=== PATIENT | female | born 1960 | race African-American/Black ===

== ENCOUNTER 2023-05-07 14:12 | Outpatient (AMB) | payer MEDICARE, SELFPAY ==
--- NOTE | 2023-05-07 14:16 | HO.NEPHOV_ITS ---
HPI HPI Comments History of Present Illness Details Tanisha was seen in the office in follow up of her CKD and hypertension.She recently had pinched nerve in the neck as left elbow pain and also left big toe pain. Her uric acid level was 6.8. Her blood pressure has b een at goal . She has seen [facility] who wants her to bring her weight down to 285 pounds before she is considered for knee replacement. She avoids nonsteroidal anti-inflammatory medications. Her blood sugar has been normal P she does not have any chest pain, shortness of breath, proximal nocturnal dyspnea, orthopnea, pedal edema or urinary symptoms. Her serum creatinine recently has been 1.4. She has no proteinuria now. She had skipped valsartan for couple of weeks but has restarted taking last week again. [facility] Medical History (Updated 05/07/23 @ 14:55 by Brandt Umaña MD) Essential (primary) hypertension Chronic kidney disease, stage 3a Surgical History (Updated 05/07/23 @ 14:27 by Kathleen Gallagher MA) History of hysterectomy History of detached retina repair Hx of cholecystectomy History of back surgery Family History Mother Diabetes CHF (congestive heart failure) Father Diabetes Social History (Updated 05/07/23 @ 14:28 by Kathleen Gallagher MA) Alcohol intake: never Patient Tobacco Use Status: Never used Tobacco Vital Signs 05/07/23 14:20 Height 5 ft 7.5 in Weight 325 lb BMI 50.1 BP 136/70 Blood Pressure Location Rt brachial Position Sitting Pulse 65 Pulse Source Pulse Oximeter Physical Exam Vital Signs: Last Vital Signs Pulse 65 05/07/23 14:20 BP 136/70 05/07/23 14:20 BMI result Body Mass Index 50.1 Const General: comfortable and no acute distress Orientation/consciousness: patient oriented x3 HEENT Head: Yes normocephalic Mouth: Normal oral and palatal mucosa present Eyes EOM: EOMs intact bilaterally Neck Neck: Yes supple Resp Auscultation: clear to auscultation bilaterally Cardio Jugular venous distension: no JVD Rate: regular rate GI Palpation (GI): Soft to palpation Auscultation: normal bowel sounds General: Yes no CVA tenderness Back/Spine/Pelvis Back: no CVA tenderness Skin General skin exam: no rashes or lesions noted Neuro General: patient oriented x3 and moves all extremities Extrem General: Yes no pedal edema Assessment & Plan Assessment & Plan (1) Essential (primary) hypertension: Code(s): I10 - Essential (primary) hypertension (2) Chronic kidney disease, stage 3a: Code(s): N18.31 - Chronic kidney disease, stage 3a Plan Tanisha has stage 3 chronic kidney disease at baseline . Her renal function remains stable at baseline with a serum creatinine 1.4. She has no proteinuria. Her blood pressure is at goal. She avoids nonsteroidal anti-inflammatory medications. Her blood sugar is normal. She is trying to lose weight. She hydrates herself well. I reinforced her to continue current dose of Ibersartan. I shall consider cutting back the dose if she loses significant weight. I did not make any medication changes today. All her questions and concerns were addressed. Follow-up lab work ordered. Time spent retrieving data, patient encounter and documentation 23 minutes. Follow-up given. Orders: Orders Electrolytes Today I10 - Essential (primary) hypertension, N18.31 - Chronic kidney disease, stage 3a Blood Urea Nitrogen Today I10 - Essential (primary) hypertension, N18.31 - Chronic kidney disease, stage 3a Creatinine Today I10 - Essential (primary) hypertension, N18.31 - Chronic kidney disease, stage 3a Calcium Today I10 - Essential (primary) hypertension, N18.31 - Chronic kidney disease, stage 3a Coding Level of Care Code Est Pt Level 3 (37153) Diagnoses Essential (primary) hypertension I10 Chronic kidney disease, stage 3a N18.31
[2023-05-07 14:20] VITALS: BP 136/70; PULSE 65; BMI 50.1
== END 2023-05-07 15:03 | disposition home or self-care (01) ==
PROVIDERS: Visit Provider Internal Medicine Nephrology
DX: I12.9 Hypertensive chronic kidney disease with stage 1 through stage 4 chronic kidney disease, or unspecified chronic kidney disease (principal); N18.31 Chronic kidney disease, stage 3a
CPT/HCPCS: 99213

== ENCOUNTER → 2023-05-07 14:12 | Outpatient (BNVA) | payer MEDICARE, SELFPAY | PROVIDERS: Visit Provider Internal Medicine Nephrology | DX: I12.9 Hypertensive chronic kidney disease with stage 1 through stage 4 chronic kidney disease, or unspecified chronic kidney disease (principal); N18.31 Chronic kidney disease, stage 3a | CPT/HCPCS: 99212 ==

== ENCOUNTER 2023-08-01 12:19 | Outpatient (REF) | payer MEDICARE, SELFPAY ==
--- NOTE | ~2023-08-01 | XR_ITS ---
EXAMINATION: XR AP, LATERAL AND SUNRISE VIEWS OF BILATERAL KNEES CLINICAL INFORMATION: Pain in unspecified knee. COMPARISON: July 12, 2022 radiographs bilateral knees. TECHNIQUE: AP, lateral and sunrise views of bilateral knees. FINDINGS: RIGHT KNEE: The bones are diffusely demineralized. Genu varus. Severe medial joint space narrowing with [id number], remodeling and hypertrophic change. Moderate degenerative changes in the lateral compartment. Advanced degenerative changes in the patellofemoral compartment. Coarse calcification in the right suprapatellar region present on 07/12/2022 and of indeterminate etiology. LEFT KNEE: The bones are diffusely demineralized. Genu varus. Severe medial joint space narrowing with [id number], remodeling and hypertrophic change. Moderate degenerative changes in the lateral compartment. Advanced degenerative changes in the patellofemoral compartment. XR/XR knee RT 2V IMPRESSION: 1. Severe degenerative changes bilateral knees. 2. Coarse calcification in the right suprapatellar region present on 07/12/2022 and of indeterminate etiology. MRI should be considered for further evaluation based on the clinical assessment.
--- NOTE | ~2023-08-01 | XR_ITS ---
EXAMINATION: XR AP, LATERAL AND SUNRISE VIEWS OF BILATERAL KNEES CLINICAL INFORMATION: Pain in unspecified knee. COMPARISON: July 12, 2022 radiographs bilateral knees. TECHNIQUE: AP, lateral and sunrise views of bilateral knees. FINDINGS: RIGHT KNEE: The bones are diffusely demineralized. Genu varus. Severe medial joint space narrowing with [id number], remodeling and hypertrophic change. Moderate degenerative changes in the lateral compartment. Advanced degenerative changes in the patellofemoral compartment. Coarse calcification in the right suprapatellar region present on 07/12/2022 and of indeterminate etiology. LEFT KNEE: The bones are diffusely demineralized. Genu varus. Severe medial joint space narrowing with [id number], remodeling and hypertrophic change. Moderate degenerative changes in the lateral compartment. Advanced degenerative changes in the patellofemoral compartment. XR/XR knee standing BI IMPRESSION: 1. Severe degenerative changes bilateral knees. 2. Coarse calcification in the right suprapatellar region present on 07/12/2022 and of indeterminate etiology. MRI should be considered for further evaluation based on the clinical assessment.
--- NOTE | ~2023-08-01 | XR_ITS ---
EXAMINATION: XR AP, LATERAL AND SUNRISE VIEWS OF BILATERAL KNEES CLINICAL INFORMATION: Pain in unspecified knee. COMPARISON: July 12, 2022 radiographs bilateral knees. TECHNIQUE: AP, lateral and sunrise views of bilateral knees. FINDINGS: RIGHT KNEE: The bones are diffusely demineralized. Genu varus. Severe medial joint space narrowing with [id number], remodeling and hypertrophic change. Moderate degenerative changes in the lateral compartment. Advanced degenerative changes in the patellofemoral compartment. Coarse calcification in the right suprapatellar region present on 07/12/2022 and of indeterminate etiology. LEFT KNEE: The bones are diffusely demineralized. Genu varus. Severe medial joint space narrowing with [id number], remodeling and hypertrophic change. Moderate degenerative changes in the lateral compartment. Advanced degenerative changes in the patellofemoral compartment. XR/XR knee LT 2V IMPRESSION: 1. Severe degenerative changes bilateral knees. 2. Coarse calcification in the right suprapatellar region present on 07/12/2022 and of indeterminate etiology. MRI should be considered for further evaluation based on the clinical assessment.
== END 2023-08-01 12:20 | disposition home or self-care (01) ==
LOC: HO.HOSX 12:19
PROVIDERS: Visit Provider Orthopaedic Surgery
DX: M17.0 Bilateral primary osteoarthritis of knee (principal)
CPT/HCPCS: 73560; 73565; 99202

== ENCOUNTER 2023-08-01 13:40 | Outpatient (AMB) | payer MEDICARE, SELFPAY ==
--- NOTE | 2023-08-01 14:06 | A.OFFVIS_ITS ---
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 She was previously seen at [facility] where she has had bilateral knee cortisone and Euflexxa Injections. Patient reports that she was discussing TKA with them but needed to loose some weight. She has been struggling with loosing weight, she has been working physical therapy. 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 She complains of pain with daily activity, worse with walking, kneeling, or using stairs. She has been seen at [facility] for this, and has a hx of bilateral steroid & euflexxa injections, with some relief. She is here for a second opinion regarding treatment. She was in discussion concerning surgery, but was told her weight was too high to consider surgery. She says she has been struggling to lose weight due to her knee pain. She has found some relief from PT. [facility] Medical History (Updated 08/02/23 @ 06:43 by Wilmer Hayward MD) Essential (primary) hypertension Chronic kidney disease, stage 3a Surgical History (Updated 05/07/23 @ 14:27 by Kathleen Gallagher MA) History of hysterectomy History of detached retina repair Hx of cholecystectomy History of back surgery Family History Mother Diabetes CHF (congestive heart failure) Father Diabetes Social History (Updated 08/01/23 @ 14:15 by Wendy Cornejo CMA) Alcohol intake: never Patient Tobacco Use Status: Never used Tobacco Current occupational status: unemployed Review of Systems Const All systems reviewed & are unremarkable except as noted in HPI and below Physical Exam Const General: no acute distress, alert and awake Orientation/consciousness: patient oriented x3 HEENT Head: Yes normocephalic and Yes atraumatic Mouth: moist mucous membranes Eyes General: appearance normal, both eyes and all related structures EOM: EOMs intact bilaterally Chest Other: no audible wheezing. Resp Other: No audible wheezing Effort & Inspection: normal respiratory effort and able to speak in complete sentences Cardio Other: Radial pulse palpable with no rythmic abnormalities Jugular venous distension: no JVD Back/Spine/Pelvis Cervical Spine: normal cervical lordosis Skin General skin exam: turgor normal Rashes: no rashes Neuro General: patient oriented x3 Extrem Other: + gait antalgia 0-120 deg bilaterally Flexion limited by soft tissues 1+ varus instability Psych Appearance: grossly normal Mental Status: mental status grossly normal Speech and movement: Normal speech and movement present Affect: normal affect Attitude: cooperative Results Reviewed Results Reviewed: I personally reviewed relevant radiographs. Severe bilateral knee arthropathy with varus pattern and tibial subluxation Assessment & Plan Assessment & Plan (1) Bilateral primary osteoarthritis of knee: Code(s): M17.0 - Bilateral primary osteoarthritis of knee Plan: This is a very pleasant 63 yo F with bilateral knee OA. She is severely limited by her knee arthritis and feels the quality of her life is diminished. I reviewed her xrays with her and explained the rationale behind weight loss prior to surgery and the goals of arthroplasty and the risks, benefits and alternatives. I gave her the name of our moris garza and calculated the amount of weight loss that would be required for her to have a BMI < 40. She would benefit from both arthroplasty and weight loss. She can contact me in the future if she needs anything. Plan Prepared for Wilmer Hayward MD by Aditya Alonso, medical center director, on 08/01/23 at 2:15 PM, EST. Orders: Orders XR knee RT 2V 08/01/23 M25.569 - Pain in unspecified knee XR knee standing BI 08/01/23 M25.569 - Pain in unspecified knee XR knee LT 2V 08/01/23 M25.569 - Pain in unspecified knee Coding Level of Care Code New Pt Level 4 (34063) Diagnoses Bilateral primary osteoarthritis of knee M17.0
== END 2023-08-01 15:07 | disposition home or self-care (01) ==
PROVIDERS: Visit Provider Orthopaedic Surgery
DX: M17.0 Bilateral primary osteoarthritis of knee (principal)
CPT/HCPCS: 99203

== ENCOUNTER 2023-09-04 10:32 | Outpatient (REF) | payer MEDICARE, SELFPAY ==
[2023-09-04 18:51] LABS: Anion Gap 13 (12-20); Blood Urea Nitrogen 25 mg/dL (9-16); Carbon Dioxide 25 mmol/L (22-29); Chloride 110 mmol/L (96-108); Estimated Glomerular Filt Rate 43; Potassium 3.8 mmol/L (3.3-5.1); Sodium 144 mmol/L (135-145)
== END 2023-09-04 10:33 | disposition home or self-care (01) ==
LOC: HO.HKASLDS 10:32
PROVIDERS: Visit Provider Internal Medicine Nephrology
DX: I10 Essential (primary) hypertension (principal); N18.31 Chronic kidney disease, stage 3a
CPT/HCPCS: 36415; 80051; 82310; 82565; 84520

== ENCOUNTER 2023-09-05 15:14 | Outpatient (AMB) | payer MEDICARE, SELFPAY ==
--- NOTE | 2023-09-05 15:29 | HO.NEPHOV_ITS ---
HPI HPI Comments History of Present Illness Details I had the delight of seeing Tanisha in follow-up of her hypertension as well as CKD. She has been having back pain. She has been closely followed by her primary care physician. She denies taking any excessive nonsteroidal anti- inflammatories for her back pain. She has no hematuria or flank pain. She denies fever, chills or rigors. Her blood pressure has been at goal. Her renal functions have been stable. She does not have any worsening pedal edema, chest pain, shortness of breath, paroxysmal nocturnal dyspnea, orthopnea. She is compliant with her CPAP. [facility] Medical History (Updated 08/02/23 @ 06:43 by Wilmer Hayward MD) Essential (primary) hypertension Chronic kidney disease, stage 3a Surgical History History of hysterectomy History of detached retina repair Hx of cholecystectomy History of back surgery Family History Mother Diabetes CHF (congestive heart failure) Father Diabetes Social History Alcohol intake: never Patient Tobacco Use Status: Never used Tobacco Current occupational status: unemployed Vital Signs 09/05/23 15:32 Height 5 ft 7.5 in Weight 332 lb BMI 51.2 BP 112/74 Blood Pressure Location Lt radial Position Sitting Pulse 60 Pulse Source Pulse Oximeter Pulse Oximetry (%) 97 Oxygen Delivery Method Room Air Physical Exam Vital Signs: Last Vital Signs Pulse 60 09/05/23 15:32 BP 112/74 09/05/23 15:32 Pulse Ox 97 09/05/23 15:32 Oxygen Delivery Method Room Air 09/05/23 15:32 BMI result Body Mass Index 51.2 Const General: comfortable and no acute distress Orientation/consciousness: patient oriented x3 HEENT Head: Yes normocephalic Mouth: Normal oral and palatal mucosa present Eyes EOM: EOMs intact bilaterally Neck Neck: Yes supple Resp Auscultation: clear to auscultation bilaterally Cardio Jugular venous distension: no JVD Rate: regular rate GI Palpation (GI): Soft to palpation Auscultation: normal bowel sounds Skin General skin exam: no rashes or lesions noted Neuro General: patient oriented x3 and moves all extremities Assessment & Plan Assessment & Plan (1) Essential (primary) hypertension: Code(s): I10 - Essential (primary) hypertension (2) Chronic kidney disease, stage 3a: Code(s): N18.31 - Chronic kidney disease, stage 3a Plan Tanisha has longstanding hypertension mild CKD. Her renal functions are close to baseline. Her blood pressure has been at goal. She is on angiotensin receptor klever. Her volume status is optimal. She is tolerating statins. She does not have any orthostatic symptoms. She avoids nonsteroidal anti-inflammatories. She maintains good hydration. I did not make any medication changes today. All the lab data were discussed. All questions were answered. Follow-up appointment given. Orders: Orders Creatinine 09/05/23 I10 - Essential (primary) hypertension, N18.31 - Chronic kidney disease, stage 3a Blood Urea Nitrogen 09/05/23 I10 - Essential (primary) hypertension, N18.31 - Chronic kidney disease, stage 3a Protein Creatinine Ratio, Ur 09/05/23 I10 - Essential (primary) hypertension, N18.31 - Chronic kidney disease, stage 3a Electrolytes 09/05/23 I10 - Essential (primary) hypertension, N18.31 - Chronic kidney disease, stage 3a Coding Level of Care Code Est Pt Level 4 (46531) Diagnoses Essential (primary) hypertension I10 Chronic kidney disease, stage 3a N18.31 Results Reviewed Nephrology Results: Sodium 144 mmol/L (135-145) 09/04/23 Potassium 3.8 mmol/L (3.3-5.1) 09/04/23 Chloride 110 mmol/L (96-108) H 09/04/23 Carbon Dioxide 25 mmol/L (22-29) 09/04/23 BUN 25 mg/dL (9-16) H 09/04/23 Creatinine 1.25 mg/dL (0.5-1.4) 09/04/23 Calcium 9.0 mg/dL (8.4-10.2) 09/04/23
[2023-09-05 15:32] VITALS: BP 112/74; PULSE 60; O2SAT 97; BMI 51.2
== END 2023-09-05 16:09 | disposition home or self-care (01) ==
LOC: HO.HKAS 15:14
PROVIDERS: PCP Internal Medicine; Visit Provider Internal Medicine Nephrology
DX: I10 Essential (primary) hypertension (principal); N18.31 Chronic kidney disease, stage 3a
CPT/HCPCS: 99214

== ENCOUNTER → 2023-09-05 15:14 | Outpatient (BNVA) | payer MEDICARE, SELFPAY | PROVIDERS: PCP Internal Medicine; Visit Provider Internal Medicine Nephrology | DX: I12.9 Hypertensive chronic kidney disease with stage 1 through stage 4 chronic kidney disease, or unspecified chronic kidney disease (principal); N18.31 Chronic kidney disease, stage 3a | CPT/HCPCS: 99212 ==

== ENCOUNTER 2023-12-03 15:26 | Outpatient (REF) | payer MEDICARE, SELFPAY ==
[2023-12-03 18:32] LABS: Anion Gap 12 (12-20); Blood Urea Nitrogen 25 mg/dL (9-16); Calcium 8.9 mg/dL (8.4-10.2); Carbon Dioxide 24 mmol/L (22-29); Chloride 111 mmol/L (96-108); Estimated Glomerular Filt Rate 38; Potassium 3.5 mmol/L (3.3-5.1); Sodium 143 mmol/L (135-145)
[2023-12-03 18:42] LABS: Creatinine Urine 239.39 mg/dL; Protein/Creatinine Ratio, Ur 0.13 (<0.2); Total Protein Urine Random 31 mg/dL (<12)
== END 2023-12-03 15:27 | disposition home or self-care (01) ==
LOC: HO.HKASLDS 15:26
PROVIDERS: Visit Provider Internal Medicine Nephrology
DX: I10 Essential (primary) hypertension (principal); N18.31 Chronic kidney disease, stage 3a
CPT/HCPCS: 36415; 80051; 82310; 82565; 82570; 84156; 84520

== ENCOUNTER 2023-12-05 15:29 | Outpatient (AMB) | payer MEDICARE, SELFPAY ==
[2023-12-05 15:34] VITALS: BP 122/80; PULSE 72; O2SAT 97; BMI 52.2
--- NOTE | 2023-12-05 15:34 | HO.NEPHOV ---
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 She has been closely followed by her primary care physician. She denies taking any excessive nonsteroidal anti-inflammatories for her back pain. She has no hematuria or flank pain. She denies fever, chills or rigors. Her blood pressure has been at goal. Her renal functions have been stable. She does not have any worsening pedal edema, chest pain, shortness of breath, paroxysmal nocturnal dyspnea, orthopnea. She is compliant with her CPAP. [facility] Medical History (Updated 08/02/23 @ 06:43 by Wilmer Hayward MD) Essential (primary) hypertension Chronic kidney disease, stage 3a Surgical History History of hysterectomy History of detached retina repair Hx of cholecystectomy History of back surgery Family History Mother Diabetes CHF (congestive heart failure) Father Diabetes Social History Alcohol intake: never Patient Tobacco Use Status: Never used Tobacco Current occupational status: unemployed Physical Exam Vital Signs: Last Vital Signs Pulse 72 12/05/23 15:34 BP 122/80 12/05/23 15:34 Pulse Ox 97 12/05/23 15:34 Oxygen Delivery Method Room Air 12/05/23 15:34 BMI result Body Mass Index 52.2 Const General: comfortable and no acute distress Orientation/consciousness: patient oriented x3 HEENT Head: Yes normocephalic Mouth: Normal oral and palatal mucosa present Eyes EOM: EOMs intact bilaterally Neck Neck: Yes supple Resp Auscultation: clear to auscultation bilaterally Cardio Jugular venous distension: no JVD Rate: regular rate GI Palpation (GI): Soft to palpation Auscultation: normal bowel sounds General: Yes no CVA tenderness Back/Spine/Pelvis Back: no CVA tenderness Skin General skin exam: no rashes or lesions noted Neuro General: patient oriented x3 and moves all extremities Extrem General: Yes no pedal edema Results Reviewed Nephrology Results: Sodium 143 mmol/L (135-145) 12/03/23 Potassium 3.5 mmol/L (3.3-5.1) 12/03/23 Chloride 111 mmol/L (96-108) H 12/03/23 Carbon Dioxide 24 mmol/L (22-29) 12/03/23 BUN 25 mg/dL (9-16) H 12/03/23 Creatinine 1.39 mg/dL (0.5-1.4) 12/03/23 Calcium 8.9 mg/dL (8.4-10.2) 12/03/23 Urine Creatinine 239.39 mg/dL 12/03/23 Protein/Creatinin Ratio 0.13 (<0.2) 12/03/23 Assessment & Plan Assessment & Plan (1) Essential (primary) hypertension: Code(s): I10 - Essential (primary) hypertension Category: Medical (2) Chronic kidney disease, stage 3a: Code(s): N18.31 - Chronic kidney disease, stage 3a Category: Medical Plan Tanisha has longstanding hypertension mild CKD. Her renal functions are close to baseline. Her blood pressure has been at goal. She is on angiotensin receptor klever. Her volume status is optimal. She is tolerating statins. She does not have any orthostatic symptoms. She avoids nonsteroidal anti-inflammatories. She maintains good hydration. I did not make any medication changes today. All the lab data were discussed. All questions were answered. Follow-up appointment given. Orders: Orders Blood Urea Nitrogen Today I10 - Essential (primary) hypertension, N18.31 - Chronic kidney disease, stage 3a Electrolytes Today I10 - Essential (primary) hypertension, N18.31 - Chronic kidney disease, stage 3a Creatinine Today I10 - Essential (primary) hypertension, N18.31 - Chronic kidney disease, stage 3a Coding Level of Care Code Est Pt Level 4 (77384) Diagnoses Essential (primary) hypertension I10 Chronic kidney disease, stage 3a N18.31
== END 2023-12-05 15:59 | disposition home or self-care (01) ==
PROVIDERS: PCP Internal Medicine; Visit Provider Internal Medicine Nephrology
DX: I10 Essential (primary) hypertension (principal); N18.31 Chronic kidney disease, stage 3a
CPT/HCPCS: 99214

== ENCOUNTER → 2023-12-05 15:29 | Outpatient (BNVA) | payer MEDICARE, SELFPAY | PROVIDERS: PCP Internal Medicine; Visit Provider Internal Medicine Nephrology | DX: I12.9 Hypertensive chronic kidney disease with stage 1 through stage 4 chronic kidney disease, or unspecified chronic kidney disease (principal); N18.31 Chronic kidney disease, stage 3a | CPT/HCPCS: 99212 ==

== ENCOUNTER 2024-05-28 13:42 | Outpatient (AMB) | payer MEDICARE, SELFPAY ==
--- OUTSIDE RECORDS SUMMARY | 2024-05-28 13:44 | XMS_ITS | Continuity of Care Document ---
Author Organization [facility] Address [address] [place] [address]- Support Name Relationship Address Phone ZELAYA, TD Personal Relationship Unknown Theresa vailable ZELAYA, TD Personal Relationship Unknown Theresa vailable ZELAYA, TD Personal Relationship Unknown Theresa vailable ZELAYA, TD Personal Relationship Unknown Theresa vailable ZELAYA, TD Personal Relationship Unknown Theresa vailable ZELAYA, TD Personal Relationship Unknown Theresa vailable ZELAYA, TD Personal Relationship Unknown Theresa vailable ZELAYA, TD Personal Relationship Unknown Theresa vailable ZELAYA, TD Personal Relationship Unknown Theresa vailable ZELAYA, TD Personal Relationship Unknown Theresa vailable ZELAYA, TD Personal Relationship Unknown Theresa vailable ZELAYA, TD Personal Relationship Unknown Theresa vailable ZELAYA, TD Personal Relationship Unknown Theresa vailable ZELAYA, TD Personal Relationship Unknown Theresa vailable ZELAYA, TD Personal Relationship Unknown Theresa vailable ZELAYA, TD Personal Relationship Unknown Theresa vailable ZELAYA, TD Personal Relationship Unknown Theresa vailable ZELAYA, TD Personal Relationship Unknown Theresa vailable ZELAYA, TD Personal Relationship Unknown Theresa vailable ZELAYA, TD Personal Relationship Unknown Theresa vailable ZELAYA, TD Personal Relationship Unknown Theresa vailable ZELAYA, TD Personal Relationship Unknown Theresa vailable ZELAYA, TD Personal Relationship Unknown Theresa vailable ZELAYA, TD Personal Relationship Unknown Theresa vailable ZELAYA, TD Personal Relationship Unknown Theresa vailable ZELAYA, TD Personal Relationship Unknown Theresa vailable ZELAYA, TD Personal Relationship Unknown Theresa vailable ZELAYA, TD Personal Relationship Unknown Theresa vailable ZEALYA, TD Personal Relationship Unknown Theresa vailable ZELAYA, TIM Personal Relationship Unknown Unavai lable ZELAYA, TD Personal Relationship Unknown Theresa vailable ZELAYA, TD Personal Relationship Unknown Theresa vailable ZELAYA, TD Personal Relationship Unknown Theresa vailable ZELAYA, TD Personal Relationship Unknown Theresa vailable ZELAYA, TD Personal Relationship Unknown Theresa vailable ZELAYA, TD Personal Relationship Unknown Theresa vailable ZELAYA, TD Personal Relationship Unknown Theresa vailable ZELAYA, TD Personal Relationship Unknown Theresa vailable ZELAYA, TIM Personal Relationship Unknown Unavai lable ZELAYA, TD Personal Relationship Unknown Theresa vailable ZELAYA, TD Personal Relationship Unknown Theresa vailable ZELAYA, ALYCE Personal Relationship Unknown Unav ailable ZELAYA, TD Personal Relationship Unknown Theresa vailable ZELAYA, TD Personal Relationship Unknown Theresa vailable ZELAYA, TD Personal Relationship Unknown Theresa vailable ZELAYA, TD Personal Relationship Unknown Theresa vailable ZELAYA, TD Personal Relationship Unknown Theresa vailable ZELAYA, TD Personal Relationship Unknown Theresa vailable ZELAYA, ALYCE Personal Relationship Unknown Unav ailable ZELAYA, TD Personal Relationship Unknown Theresa vailable ZELAYA, TD spouse Unknown Unavailable ZELAYA, TD Personal Relationship Unknown Theresa vailable ZELAYA, MARK child Unknown Unavailable ZELAYA, TD Personal Relationship Unknown Theresa vailable ZELAYA, TD Personal Relationship Unknown Theresa vailable ZELAYA, TD Personal Relationship Unknown Theresa vailable ZELAYA, TD Personal Relationship Unknown Theresa vailable ZELAYA, TD Personal Relationship Unknown Theresa vailable ZELAYA, TD Personal Relationship Unknown Theresa vailable ZELAYA, TD Personal Relationship Unknown Theresa vailable ZELAYA, TD Personal Relationship Unknown Theresa vailable ZELAYA, TD Personal Relationship Unknown Theresa vailable ZELAYA, TD Personal Relationship Unknown Theresa vailable ZELAYA, TD Personal Relationship Unknown Theresa vailable ZELAYA, TD Personal Relationship Unknown Theresa vailable ZELAYA, TD Personal Relationship Unknown Theresa vailable ZELAYA, TD Personal Relationship Unknown Theresa vailable ZELAYA, TD Personal Relationship Unknown Theresa vailable ZELAYA, TD Personal Relationship Unknown Theresa vailable ZELAYA, TD Personal Relationship Unknown Theresa vailable ZELAYA, TD Personal Relationship Unknown Theresa vailable ZELAYA, TD Personal Relationship Unknown Theresa vailable ZELAYA, TD Personal Relationship Unknown Theresa vailable ZELAYA, TD Personal Relationship Unknown Theresa vailable ZELAYA, TD Personal Relationship Unknown Theresa vailable ZELAYA, TD Personal Relationship Unknown Theresa vailable ZELAYA, TD Personal Relationship Unknown Theresa vailable ZELAYA, TD Personal Relationship Unknown Theresa vailable ZELAYA, TD Personal Relationship Unknown Theresa vailable ZELAYA, TD Personal Relationship Unknown Theresa vailable ZELAYA, ALYCE Personal Relationship Unknown Unav ailable ZELAYA, TD Personal Relationship Unknown Theresa vailable MAYORGA, GAYLA sibling Unknown Unavailable ZELAYA, TD Personal Relationship Unknown Theresa vailable ZELAYA, TD Personal Relationship Unknown Theresa vailable ZELAYA, ALYCE Personal Relationship Unknown Unav ailable ZELAYA, TD Personal Relationship Unknown Theresa vailable ZELAYA, TD Personal Relationship Unknown Theresa vailable ZELAYA, TD Personal Relationship Unknown Theresa vailable ZELAYA, TD Personal Relationship Unknown Theresa vailable ZELAYA, TIM spouse Unknown Unavailable ZELAYA, TD Personal Relationship Unknown Theresa vailable ZELAYA, TD Personal Relationship Unknown Theresa vailable ZELAYA, ALYCE Personal Relationship Unknown Unav ailable ZELAYA, ALYCE Personal Relationship Unknown Unav ailable ZELAYA, TD Personal Relationship Unknown Theresa vailable ZELAYA, TD Personal Relationship Unknown Theresa vailable ZELAYA, TD Personal Relationship Unknown Theresa vailable ZELAYA, TD Personal Relationship Unknown Theresa vailable ZELAYA, ALYCE Personal Relationship Unknown Unav ailable ZELAYA, TD Personal Relationship Unknown Theresa vailable ZELAYA, ALYCE Personal Relationship Unknown Unav ailable ZELAYA, TD Personal Relationship Unknown Theresa vailable ZELAYA, TD Personal Relationship Unknown Theresa vailable ZELAYA, TD L Personal Relationship Unknown U navailable ZELAYA, TD Personal Relationship Unknown Theresa vailable ZELAYA, TD Personal Relationship Unknown Theresa vailable ZELAYA, TD Personal Relationship Unknown Theresa vailable ZELAYA, TIM Personal Relationship Unknown Unavai lable ZELAYA, TD Personal Relationship Unknown Theresa vailable ZELAYA, TD Personal Relationship Unknown Theresa vailable ZELAYA, TD Personal Relationship Unknown Theresa vailable ZELAYA, TD Personal Relationship Unknown Theresa vailable Care Team Providers Care Ampoule Filler Name Role Phone Ramos CORTEZ, Jorge W Primary Care Physician Encounter [facility] NBR [id number] Date(s): 04/07/24 - 05/07/24 [facility] Gastroenterology [address] [address] Attending Physician: Supriya Pierre Admitting Physician: Supriya Pierre Referring Physician: Supriya Pierre Encounter Type: Triage Allergies, Adverse Reactions, Alerts Substance Criticality Severity Reaction Reaction Severity Status amoxicillin itching Active lisinopril cough Active penicillins Active Motrin Active Bactrim yeast infection Acti ve Kzpjwixr-JKM-4 rash Activ e Immunizations Given and Recorded Vaccine Date Status Refusal Reason influenza virus vaccine, inactivated 04/22/24 Give n influenza virus vaccine, inactivated 05/27/23 Give n influenza virus vaccine, inactivated 03/28/22 Give n influenza virus vaccine, inactivated 06/22/21 Give n influenza virus vaccine, inactivated 1 04/20/20 Gi hiram influenza virus vaccine, inactivated 03/17/19 Give n influenza virus vaccine, inactivated 04/08/18 Give n influenza virus vaccine, inactivated 2 02/28/17 Gi hiram influenza virus vaccine, inactivated 04/10/16 Give n influenza virus vaccine, inactivated 05/19/15 Give n influenza virus vaccine, inactivated 02/16/13 [facility]ed[facility] rded SARS-CoV-2 (COVID-19) mRNA-1270 vaccine 12/26/21 R ecorded SARS-CoV-2 (COVID-19) mRNA-1273 vaccine 09/22/20 R ecorded SARS-CoV-2 (COVID-19) mRNA-1273 vaccine 08/25/20 R ecorded tetanus/diphtheria/pertussis, acel(Tdap) 3 07/25/17 Given Fluarix (oldterm) 4 04/18/12 Given pneumococcal 23-valent vaccine 11/12/11 Given Fluzone (oldterm) 03/29/11 Given FluLaval (oldterm) 03/23/10 Given Influenza Virus Vaccine (oldterm) 5 03/18/08 Given Tet/Diphth/Acel, Pertussis (oldterm) 6 03/06/07 Gi hiram 1Result Comment: [facility] [id number] 2Admin Note: [facility] [id number] 3Result Comment: [07/25/2017] [id number] 4Admin Note: vis date 12/10/2011 5Admin Note: SANOFI PASTEUR 6Admin Note: SANOFI PASTEUR Problem List Condition Confirmation Course Effective Dates Status H ealth Status Informant Acid reflux Confirmed Active Chronic allergic rhinitis Confirmed Active Anemia Confirmed Active Anxiety disorder Confirmed Active Asthma Confirmed Active Osteoarthritis of both knees Confirmed Active Heart failure, diastolic, chronic Confirmed Active Chronic kidney disease, stage 3b 1 Confirmed Active Chronic low back pain Confirmed Active Diastolic dysfunction without heart failure Confirmed Active Dizziness Confirmed Active Controlled substance agreement signed Confirmed Active Dyslipidemia Confirmed Active Easy bruising Confirmed Active Leg edema Confirmed Active Chronic fatigue Confirmed Active Fibromyalgia 2 Confirmed Active History of acute cholecystitis (cholelithiasis) S/P Laparoscopic cholecystectomy with intraoperative cholangiogram (06/13/2022) Confirmed 06/12/22 Active History of pulmonary embolism 3 Confirmed Active Headache disorder Confirmed Active Hernia of anterior abdominal wall without obstruction AND without gangrene Confirmed Active Hypertension 4 Confirmed Active Lumbar radiculopathy S/P Lumbar microdiskectomy decompression, L5-S1, left (05/07/2022) Confirmed Active Memory impairment Confirmed Active Morbid obesity Confirmed Active Preoperative examination Confirmed Active Peripheral neuropathy Confirmed Active Polyarthritis Confirmed Active SI joint arthritis Confirmed Active Sebaceous cysts of bilateral calves Confirmed Active Severe obesity Confirmed Active Obstructive sleep apnea, moderate REM dominant Confirmed Active Thyroid nodule, 2020: 3.1 cm lower isthmus, TI-RADS 4, 1.7 cm left mid gland, TI-RADS 2.S/P FNA on 02/10/2021 of isthmus nodule-nondiagnostic, predominantly cystic fluid. 5, 6 Confirmed Active Low TSH level Confirmed 04/22/24 Active Vitamin B12 deficiency Confirmed Active 1Per chart review meeting GFR criteria 2Off gabapentin 600 mg twice a day, getting pregabalin 75 mg twice a day through [facility]. Also on duloxetine 90 mg daily. [id number] 4Renal art. Duplex negative for B/L MIGUELANGEL. US:IMPRESSION: 3.1 cm lower isthmus nodule without aggressive features, but with possible punctate echogenic foci suggesting TI-RADS Category 4 characterization. Therefore, consideration for FNA recommended. 1.7 left mid gland nodule, TI-RADS Category 2. : A well circumscribed heterogeneous nodule with multiple cystic areas is noted in the area of left thyroid region. This nodule appears to be isoechoic to hyperechoic and demonstrates multiple colloid artifacts. This nodule has been stable in size. Importantly, it has been biopsy proven negative for malignancy in the past. Patient does not endorse any compressive symptoms and there is no evidence of tracheal compression and ultrasound today as well. Social History Social History Type Response Smoking Status Never (less than 100 in lifetime) entered on: 01/23/23 Sex Sex Representation Female (finding) Patient Care team information Care Team Personnel Name: Eunice Rico RN Position: [facility] RN Member Role: Primary Care Nurse Name: Annamaria Muñoz RN Position: [facility] RN Member Role: Primary Care Nurse Name: Zonia Knapp RN Position: [facility] RN Member Role: Primary Care Nurse Name: Lucina Hernandes NP Position: [facility] Associate Professional Member Role: Primary Care Nurse Name: Alaina Singh RN Position: S RN Member Role: Primary Care Nurse Name: Brandt Umaña MD Position: [facility] Renal MD Member Role: Lifetime Consulting Physician Address: [address] [place] [address] [address] [place] [address]- Telecom: Name: Ca Garcia RN Position: S RN Member Role: Primary Care Nurse Name: Janell Wan RN Position: [facility] RN Member Role: Primary Care Nurse Name: Silvia Ball RN Position: [facility] RN Member Role: Primary Care Nurse Name: Edith Serna RN Position: [facility] RN Member Role: Primary Care Nurse Name: Vinicius Fermin RN Position: [facility] RN Member Role: Primary Care Nurse Name: Kathleen Gallagher Position: [facility] AMB Nurse Member Role: Lifetime Consulting Physician Name: Pilar Murillo RN Position: [facility] SN RN Member Role: Primary Care Nurse Name: Cecilia August RN Position: [facility] RN Member Role: Primary Care Nurse Name: Kiara Oliveira RN Position: [facility] BEST Office Staff Member Role: Primary Care Nurse Name: Minerva Milner RN Position: [facility] OB RN Member Role: Primary Care Nurse Name: Jorge Beasley MD Position: [facility] Physician - Primary Care Member Role: PCP Address: [address] [place] [address] [place] Telecom: Name: Makayla Flores LPN Position: [facility] RN Member Role: Primary Care Nurse Name: Crystal Eddy RN Position: [facility] Hospital Bliss Press Operator Member Role: Primary Care Nurse Care Team Related Persons Name: TIM ZELAYA Name: MARK ZELAYA Insurance Providers Guarantor name: ALYCE ZELAYA Health Plan Information #: 1 Payer: [facility] CARE ALLIANCE/ONE CARE Member Number: NA Policy Number: NA Group Number: NA
--- OUTSIDE RECORDS SUMMARY | 2024-05-28 13:44 | XMS_ITS | Continuity of Care Document ---
Author Organization [facility] Address [address] [address]- Support Name Relationship Address Phone ZELAYA, TD Personal Relationship Unknown Theresa vailable ZELAYA, TD Personal Relationship Unknown Theresa vailable ZELAYA, DT Personal Relationship Unknown Theresa vailable ZELAYA, TD [...] TD Personal Relationship Unknown Theresa vailable ZELAYA, DT Personal Relationship Unknown Theresa vailable ZELAYA, TD [...] Unknown Theresa vailable Care Team Providers Care Computer Discovery Teacher Name Role Phone Ramos CORTEZ, Jorge W Primary Care Physician Encounter [facility] Date(s): 03/31/24 - 04/30/24 [facility] Pulmonary Medicine [address] [facility] [address] [place] [id number] Encounter Type: Triage Allergies, Adverse Reactions, Alerts Substance Criticality Severity Reaction Reaction Severity Status amoxicillin itching Active lisinopril cough Active penicillins Active Motrin Active Bactrim yeast infection Acti ve Qdrmbiyn-RDA-5 rash Activ e Immunizations Given and Recorded [...] vaccine, inactivated 02/16/13 [facility] rded SARS-CoV-2 (COVID-19) mRNA-1273 vaccine 12/26/21 R ecorded SARS-CoV-2 (COVID-19) mRNA-1273 vaccine 09/22/20 R ecorded SARS-CoV-2 (COVID-19) mRNA-1273 vaccine 08/25/20 R ecorded tetanus/diphtheria/pertussis, acel(Tdap) 3 07/25/17 Given Fluarix (oldterm) 4 04/18/12 Given pneumococcal 23-valent vaccine 11/12/11 Given Fluzone (oldterm) 03/29/11 Given FluLaval (oldterm) 03/23/10 Given Influenza Virus Vaccine (oldterm) 5 03/18/08 Given Tet/Diphth/Acel, Pertussis (oldterm) 6 03/06/07 Gi hiarm 1Result Comment: [facility] [id number] 2Admin Note: [facility] [id number] 3Result Comment: [07/25/2017] [id number] 4Admin Note: vis date 12/10/2011 5Admin Note: [...] [facility]. Also on duloxetine 90 mg daily. [id number] 4Renal art. Duplex negative for B/L MIGUELANGEL. [...] Team Personnel Name: Eunice Rico RN Position: [facility] RN Member Role: Primary Care Nurse Name: Annamaria Muñoz RN Position: [facility] RN Member Role: Primary Care Nurse Name: Zonia Knapp RN Position: [facility] RN Member Role: Primary Care Nurse Name: Lucina Hernandes NP Position: [facility] Associate Professional Member Role: Primary Care Nurse Name: Alaina Singh RN Position: [facility] RN Member Role: Primary Care Nurse Name: Brandt Umaña MD Position: [facility] Renal MD Member Role: Lifetime Consulting Physician Address: [address] [place] [address] [address] [facility] [place] [address]- Telecom: Name: Ca Garcai RN Position: S RN Member Role: Primary Care Nurse Name: Janell Wan RN Position: S RN Member Role: Primary Care Nurse Name: Silvia Ball RN Position: [facility] RN Member Role: Primary Care Nurse Name: Edith Serna RN Position: [facility] RN Member Role: Primary Care Nurse Name: Vinicius Fermin RN Position: [facility] RN Member Role: Primary Care Nurse Name: Kathleen Gallagher Position: [facility] AMB Nurse Member Role: Lifetime Consulting Physician Name: Pilar Murillo RN Position: [facility] AMB Nurse Member Role: Primary Care Nurse Name: Cecilia August RN Position: [facility] RN Member Role: Primary Care Nurse Name: Kiara Oliveira RN Position: [facility] BEST Office Staff Member Role: Primary Care Nurse Name: Minerva Milenr RN Position: [facility] OB RN Member Role: Primary Care Nurse Name: Jorge Beasley MD Position: [facility] Physician - Primary Care Member Role: PCP Address: [address] [place] [id number] Telecom: Name: Makayla Flores LPN Position: [facility] RN Member Role: Primary Care Nurse Name: Crystal Eddy RN Position: [facility] Power Tool Repair Technician Member Role: Primary Care Nurse Care Team Related Persons Name: TIM ZELAYA Name: MARK ZELAYA Insurance Providers Guarantor name: ALYCE ZELAYA Health Plan Information #: 1 Payer: [facility] CARE ALLIANCE/ONE CARE Member Number: NA Policy Number: NA Group Number: NA
--- OUTSIDE RECORDS SUMMARY | 2024-05-28 13:45 | XMS_ITS | Continuity of Care Document ---
Author Organization [facility] Address [address] [place] [address]- Support Name Relationship Address Phone ZELAYA, TD [...] Theresa vailable ZELAYA, TD Personal Relationship Unknown Tehresa vailable ZELAYA, TD Personal Relationship Unknown Theresa [...] ZELAYA, TD Personal Relationship Unknown Theresa vailable ZLEAYA, TD Personal Relationship Unknown Theresa vailable ZELAYA, [...] TD Personal Relationship Unknown Theresa vailable ZEALYA, TIM spouse Unknown Unavailable ZELAYA, TD Personal Relationship Unknown Theresa vailable ZELAYA, TD Personal Relationship Unknown Theresa vailable ZELAYA, ALYCE Personal Relationship Unknown Unav ailable ZELAYA, ALYCE Personal Relationship Unknown Unav ailable ZELAYA, TD Personal Relationship Unknown Theresa vailable ZELAYA, TD Personal Relationship Unknown Thersea vailable ZELAYA, TD Personal Relationship Unknown Theresa [...] Unknown Theresa vailable Care Team Providers Care Bridge Leverman Name Role Phone Ramos CORTEZ, Jorge W Primary Care Physician [phone] Encounter [facility] Date(s): 04/30/24 - 05/01/[address] [address]- Encounter Diagnosis Chest pain(Final) - 04/30/24 Discharge Disposition: A-D/C Home Attending Physician: Benny Rebolledo MD Admitting Physician: Benny Rebolledo MD Referring Physician: Not on Staff, Referring MD Encounter Type: Disch ES Allergies, Adverse Reactions, Alerts Substance Criticality Severity Reaction Reaction Severity Status amoxicillin itching Active lisinopril cough Active penicillins Active Motrin Active Bactrim yeast infection Acti ve [id number] rash Activ e Immunizations Given and Recorded [...] (oldterm) 6 03/06/07 Gi hiram 1Result Comment: [facility] [id number] 2Admin Note: [facility] [id number] 3Result Comment: [07/25/2017] [id number] 4Admin Note: vis date 12/10/2011 5Admin Note: [...] NEOS. Also on duloxetine 90 mg daily. [address] 4Renal art. Duplex negative for B/L MIGUELANGEL. US:IMPRESSION: 3.1 cm lower isthmus nodule without aggressive features, but with possible punctate echogenic foci suggesting TI-RADS Category 4 characterization. Therefore, consideration for FNA recommended. 1.7 left mid gland nodule, TI-RADS Category 2. 6002/06/2016: A well circumscribed heterogeneous nodule with multiple [...] tracheal compression and ultrasound today as well. Results Radiology Reports * Exam Date Time Procedure Performing Provider Status 04/30/24 6:[address] Angio Chest Karo Moore; Auth (Verified) Notes: (CT Angio Chest) Reason For Exam: PE suspected, Intermediate prob, positive D-dimer,;Other: RESULT: CT Angio Chest EXAMINATION: CT Angio Chest INDICATION: Hx of Present Illness: sent from [place] o pna v PE. Saw PCP 1 week ago for annual checkup, labs showed elevated ddimer. US done, neg for DVT. Started having CP SOB 4-5 days ago. Hx of PE, not currently on blood thinner since 2016. L calf pain. Trip to [place] 1 month ago, flew; Reason: Other:;PE suspected, Intermediate prob, positive D-dimer,; Clinical Question(s): Pulmonary Embolism TECHNIQUE: Spiral CTA of the chest was performed after rapid IV contrast administration without cardiac gating, triggered by an JOSEPH on the main pulmonary artery. Images are formatted in multiple planes using 2-D multiplanar and 3-D maximum intensity projection. 100 cc of Isovue 300 was administered intravenously. Weight-based protocol using automatic tube modulation was used to optimize exposure parameters. CTDIvol Body: 16.57 mGy, DLP Body: 639 mGy*cm. COMPARISONS: 12/18/2019 01/15/2015 chest CTA. ANGIOGRAPHIC FINDINGS: No pulmonary embolism to the subsegmental level. Normal caliber pulmonary arteries. No acute aortic abnormality seen on this study performed without cardiac gating. NON-ANGIOGRAPHIC FINDINGS: Gas Dispatcher View Findings, Lines and Tubes: None. Trachea and Airways: Patent without evidence of tracheal or endobronchial lesion. Lungs and Pleura: Mild atelectasis at the lung bases. Otherwise clear lungs. No effusion or pneumothorax.. Mild centrilobular emphysema. Mediastinum and deena: No mass or hematoma. No mediastinal or hilar lymphadenopathy. Small type I hiatal hernia. Unchanged thyroid nodule within the midline isthmus approximately 1.8 cm. Stability since 2014 is consistent with benign process. Heart: Mild cardiomegaly. No pericardial effusion. Chest Wall Soft Tissues: Normal. Diaphragm and upper abdomen: No significant abnormality. Bones: No acute abnormality. IMPRESSION: No evidence of pulmonary embolism. No acute cardiopulmonary pathology. WSN: [id number] Ordering Physician: Bc Jarquin Dictated By: Alireza Sales MD Dictated Date/Time: 04/30/24 7:08 pm Reviewed By: Alireza Sales MD Signed By: Alireza Sales MD Signed Date/Time: 04/30/24 7:08 pm Transcribed By: GEORGE Transcribed Date/Time: 04/30/24 7:03 pm * Exam Date Time Procedure Performing Provider Status 04/30/24 6:06 PM US Doppler Ext Lower Venous Left Pen , Mariely; Auth (Verified) Notes: (US Doppler Ext Lower Venous Left) Reason For Exam: Pain in limb;Other: RESULT: US Doppler Ext Lower Venous Left US Doppler Ext Lower Venous Left Hx of Present Illness: sent from [place] pna v PE. Saw PCP 1 week ago for annual checkup, labs showed elevated ddimer. US done, neg for DVT. Started having CP SOB 4-5 days ago. Hx of PE, not currentlyon blood thinner since 2015. L calf pain. Trip to [place] 1 month ago, flew; Reason: Other:; Pain in limb; Clinical Question(s): Thrombus COMPARISON: Bilateral lower extremity venous duplex ultrasound of 04/24/2024. IMAGING TECHNIQUE: Ultrasound of the veins from the groin through the calf was performed using grayscale, color, and spectral Doppler ultrasound assessing for complete compressibility and normal flowcharacteristics. FINDINGS: Common femoral vein: Patent. No thrombosis. Femoral vein: Patent. No thrombosis. Popliteal vein: Patent. No thrombosis. Gastrocnemius veins: The visualized portions are patent without evidence of thrombosis. Peroneal veins: The visualized portions are patent without evidence of thrombosis. Posterior tibial veins: Limited visualization due to patient body habitus and leg swelling. No thrombus demonstrated. Contralateral common femoral vein: Patent. No thrombosis. OTHER FINDINGS: None. IMPRESSION: No evidence of deep venous thrombosis. Limited visualization of the posterior tibial vein due to patient body habitus and leg swelling. WSN: [id number] Ordering Physician: Bc Jarquin Dictated By: Hany Turcios MD Dictated Date/Time: 04/30/24 6:14 pm Reviewed By: Hany Turcios MD Signed By: Hany Turcios MD Signed Date/Time: 04/30/24 6:14 pm Transcribed By: GEORGE Transcribed Date/Time: 04/30/24 6:13 pm Vital Signs Most recent to oldest [Reference Range]: 1 2 3 Height 171 cm (05/01/24 12:09 AM) 171 cm (04/30/24 8:43 PM) 171 cm (04/30/24 4:34 PM) Weight 150 kg (05/01/24 12:09 AM) 150 kg (04/30/24 8:43 PM) 150 kg (04/30/24 4:34 PM) Oxygen Saturation [94-100 %] 100 % (05/01/24 12:09 AM) 100 % (04/30/24 9:57 PM) 100 % (04/30/24 8:43 PM) Pulse Rate [55-90 bpm] 67 bpm (05/01/24 12:09 AM) 72 bpm (04/30/24 11:32 PM) 68 bpm (04/30/24 9:57 PM) Body Mass Index [18.5-24.99 kg/m2] 51.3 kg/m2 *>HHI* (05/01/24 12:09 AM) 51.3 kg/m2 *>HHI* (04/30/24 8:43 PM) 51.3 kg/m2 *>HHI* (04/30/24 4:34 PM) Blood Pressure [90-138/55-84 mm Hg] 161/82mm Hg *H* (05/01/24 12:09 AM) 215/92mm Hg *H* (04/30/24 11:32 PM) 215/92mm Hg *H* (04/30/24 11:32 PM) Respiratory Rate [16-30 br/min] 16 br/min (05/01/24 12:09 AM) 17 br/min (04/30/24 9:57 PM) 13 br/min *L* (04/30/24 8:43 PM) Temperature [96.8-100.4 DegF] 98.1 DegF (04/30/24 2:05 PM) Mode of Delivery (Oxygen) Room air (05/01/24 12:09 AM) Room air (04/30/24 9:57 PM) Room air (04/30/24 8:43 PM) Blood pressure sites Arm, left (04/30/24 9:57 PM) Arm, right (04/30/24 8:43 PM) Arm, right (04/30/24 4:34 PM) Temperature Route Oral (04/30/24 2:05 PM) Dry Weight 150 kg (05/01/24 12:09 AM) 150 kg (04/30/24 8:43 PM) 150 kg (04/30/24 4:34 PM) Weight Obtained Via Patient/family state d (04/30/24 2:05 PM) Dry Weight Obtained Via Patient/family s tated (04/30/24 2:05 PM) Social History Social History Type Response Smoking Status Never (less than 100 in lifetime) entered on: 01/23/23 Sex Sex Representation Female (finding) EKG study * Event Display: EKG Authored Date: * Event Display: ECG 12-Lead Authored Date: Please click on pdf link to open report * Event Display: ECG 12-Lead Authored Date: Ventricular Rate: 88 BPM Atrial Rate: 88 BPM P-R Interval: 158 ms QRS Duration: 100 ms Q-T Interval: 346 ms QTC Calculation(Bazett): 418 ms P Keo: 45 degrees R Keo: 7 degrees T Keo: 26 degrees Normal sinus rhythm Possible Left atrial enlargement Poor R wave progression in V1-V3 may be normal variant or due to anteroseptal infarct or misplaced leads Abnormal ECG When compared with ECG of 30-Apr-2024 12:43, No significant change was found Confirmed by TRICE QUIROZ MD ([id number]) on 04/30/2024 3:09:32 PM Lasara: TRICE QUIROZ MD Patient Care team information Care Team Personnel Name: Jacky RNEunice Position: [facility] RN Member Role: Primary Care Nurse Name: Annamaria Muñoz RN Position: [facility] RN Member Role: Primary Care Nurse Name: Zonia Knapp RN Position: [facility] RN Member Role: Primary Care Nurse Name: Lucina Hernandes NP Position: [facility] Associate Professional Member Role: Primary Care Nurse Name: Alaina Singh RN Position: [facility] RN Member Role: Primary Care Nurse Name: Brandt Umaña MD Position: [facility] Renal MD Member Role: Lifetime Consulting Physician Address: [address] [place] [address] [id number] [facility] [place], [place] [address] Telecom: Name: Ca Garcia RN Position: [facility] RN Member Role: Primary Care Nurse Name: Janell Wan RN Position: [facility] RN Member Role: Primary Care Nurse Name: Silvia aBll RN Position: [facility] RN Member Role: Primary Care Nurse Name: Edith Serna RN Position: [facility] RN Member Role: Primary Care Nurse Name: Vinicius Fermin RN Position: [facility] RN Member Role: Primary Care Nurse Name: Kathleen Gallagher Position: [facility] AMB Nurse Member Role: Lifetime Consulting Physician Name: Pilar Murillo RN Position: [facility] SN RN Member Role: Primary Care Nurse Name: Cecilia August RN Position: [facility] RN Member Role: Primary Care Nurse Name: Kiara Oliveira RN Position: [facility] BEST Office Staff Member Role: Primary Care Nurse Name: Minerva Milner RN Position: [facility] OB RN Member Role: Primary Care Nurse Name: Jorge Beasley MD Position: [facility] Physician - Primary Care Member Role: PCP Address: [address] [place] [address] [facility] [place] [address]- Telecom: Name: Makayla Flores LPN Position: [facility] RN Member Role: Primary Care Nurse Name: Crystal Eddy RN Position: [facility] Hospital Tennis Ball Cover Cementer Member Role: Primary Care Nurse Care Team Related Persons Name: TIM ZELAYA Name: MARK ZELAYA Insurance Providers Guarantor name: ALYCE ZELAYA Health Plan Information #: 1 Payer: [facility] [employer] Member Number: [id number] Policy Number: NA Group Number: [facility] Health Plan Information #: 2 Payer: [facility] [employer] C[employer] Member Number: [id number] Policy Number: NA Group Number: NA
--- OUTSIDE RECORDS SUMMARY | 2024-05-28 13:45 | XMS_ITS | Data Portability ---
Author Organization [facility], [facility] Address [address] [place] [address] Care Team Providers Care Manager Practice Name Role Phone REYANA MENDESD Primary Care Provider [phone] Assessment Encounter Date Assessment Date Assessment LastModified by Organization Details LastModified Time 11/14/2023 11/14/2023 I am seeing the patient today under the supervision of Dr. Ocampo who was available but who did not see the patient. HPI: Patient presents today follow-up regarding their Bi-lateral knee. They have had difficulty up and down stairs sitting standing. Previous injection gave good relief until recent. Problems ambulating. Zjst-mey-cstjhgk medications are helping somewhat but not significantly. Pain is constant aching sometimes sharp pain with giving out sensations. Past family, medical, social history and review of systems has been reviewed, updated and is located in the patient? s chart. Examination: The patient is well appearing and in no apparent distress. Alert and oriented x3. Gait is symmetric. Examination of the Bi-lateral knee reveals no evidence of any edema, erythema, or warmth. No Deformity. Range of motion of the knee limited with mild discomfort at the end ranges. Mild effusion. Does have some tenderness to palpation about the medial hemijoint line. No tenderness to palpation about the lateral hemijoint line. Patellofemoral crepitus is noted. mild lateral ligamentous laxity. Negative Feliz? s. Calf is supple and nontender. Neurovascularly intact distally. Impression: Bi-lateral Knee osteoarthritis Plan: We discussed the role of conservative management including medications, physical therapy, injection and bracing. At this point the patient was to proceed with injection. Please see procedure note. They will follow up with us as scheduled. brenda Not available 11/14/2023 09:00:05 01/10/2024 01/10/2024 I am seeing the patient today under the supervision of Dr. Ocampo who was available but who did not see the patient. HPI: Patient presents today follow-up regarding their Bi-lateral knee. They have had difficulty up and down stairs sitting standing. Previous injection gave good relief until recent. Problems ambulating. Glih-qlr-gvjggue medications are helping somewhat but not significantly. Pain is constant aching sometimes sharp pain with giving out sensations. Past family, medical, social history and review of systems has been reviewed, updated and is located in the patient? s chart. Examination: The patient is well appearing and in no apparent distress. Alert and oriented x3. Gait is symmetric. Examination of the Bi-lateral knee reveals no evidence of any edema, erythema, or warmth. No Deformity. Range of motion of the knee limited with mild discomfort at the end ranges. Mild effusion. Does have some tenderness to palpation about the medial hemijoint line. No tenderness to palpation about the lateral hemijoint line. Patellofemoral crepitus is noted. mild lateral ligamentous laxity. Negative Feliz? s. Calf is supple and nontender. Neurovascularly intact distally. Impression: Bi-lateral Knee osteoarthritis Plan: We discussed the role of conservative management including medications, physical therapy, injection and bracing. At this point the patient was to proceed with injection. Please see procedure note. They will follow up with us as scheduled. brenda Not available 01/10/2024 13:58:21 03/11/2024 03/11/2024 I am seeing the patient today under the supervision of Dr Ocampo who was available but who did not see the patient. brenda Not available 03/11/2024 14:32:43 05/22/2024 05/22/2024 I am seeing the patient today under the supervision of Dr Ocampo who was available but who did not see the patient. brenda Not available 05/22/2024 14:14:25 Plan of Treatment Reminders Order Date Submit Date Provider Last Modified By Organization Details Last Modified Time Details Appointments RECHECK 10 2024 01:45P Mable Carr PA-C Not available Not available Not available Lab None recorded . Referral physical therapis t referral - Evaluate & RxLumbar Stabiliz ation Program, GAIT TRAINING , BILAT LEG STRENGTH ENING 2023 024 [email or web address] Not available 10/03/2023 15:48:20 pain manageme nt referral - LBP eval and treat 2023 024 [email or web address] [facility], [address] [place] [address], [id number], 10/22/2023 13:29:46 Procedures None recorded . Surgeries None recorded . Imaging None recorded . Medication Orders None recorded . Patient TargetsNo targets recorded. Patient InstructionsNo instructions recorded. Reason for Referral Physical Therapist Referral for Low back pain Evaluate & RxLumbar Stabilization Program, GAIT TRAINING, BILAT LEG STRENGTHENING Referring Physician: Lucina Peña, Orthopedic Surgery, [id number] Encounter Date: 09/24/2023 Pain Management Referral for Low back pain LBP eval and treat Referring Physician: Lucina Peña, Orthopedic Surgery, [id number] Encounter Date: 09/24/2023 Results Created Date Observation Date Name Description Value Unit Range Abnormal Flag Note LastModifiedBy Organization Detail LastModifiedTime 09/23/19 24 09/21/2023 MRI, lumba r spine , w/wo contr ast [facility] Access ion Number : [id number] Patipaige t Name: Tanisha Pelayoa alea Record Number : [id number] Date of : 1959 Date of Exam: 2023 Referr ing Physic ren: Jacque ramirez, Lucina [facility] [address] [facility], [place] [facility] [address] Exam: MR Lumbar Spine (C-/C+ ) CPT 60354 Room Descri ption: [facility] Espr 1.5 MR Lumbar Spine (C-/C+ ) CPT 79818 INDICA TION: Reason For Exam: M54.16 - Radicu lopath y, lumbar region , , with jamel and urgent has urinar y incont inance please shai Reason For Exam: M54.16 - Radicu lopath y, lumbar region , , with jamel and urgent has urinar y incont inance please shai jwehr - Standa rd Depart ment Protoc ol TECHNI QUE: MRI of the lumbar spine was perfor med with and withou t intrav enous contra st utiliz ing sagitt al T1, sagitt al T2, sagitt al STIR, axial T1, and axial T2-barbra ghted sequen catrachito, and post-c ontras t sagitt al T1 and axial T1-barbra ghted sequen catrachito. 29 mL Dotare m intrav enous contra st was admini stered . COMPAR KIMBERLY: CT of the lumbar spine 024 FINDIN GS: NUMBER ING: The study assume s 5 non-ri b-bear ing lumbar type verteb ral bodies . ALIGNM ENT, VERTEB TAHIRA, MARROW , AND DISCS: Alignm ent is normal . Verteb ral body height s are preser shayan. There are combin ed Modic type I and Modic type II signal change s at L4-L5 and L5-S1 as well as multil evel endpla te osteop hytes. Multip le scatte red areas of focal fatty marrow replac ement. There is disc desicc ation from L3-L4 throug h L5-S1, mild-t o-mode rate loss of interv ertebr al disc height as well as vacuum disc phenom enon at the L4-L5 and L5-S1 levels . There is multil evel facet arthro leigh with associ ated reacti ve/deg enerat nilson marrow signal change s at L4-L5 and L5-S1, right greate r than left at L4-L5 and left greate r than right at L5-S1. CONUS: The conus is normal in signal and contou r, with normal level of termin ation at L2. There is no abnorm al intrad ural enhanc ement. PARASP INAL TISSUE S: There is atroph y of the parasp inal muscul ature, left greate r than right, most pronou nced at the lower lumbar levels . Nonspe cific edema in the depend ent edema in the subcut aneous fat. Small renal cysts which do not requir e dedica joey follow -up. DETAIL ED FINDIN GS BY LEVEL: T12-L1 : Minima l disc bulge and facet arthro leigh. No signif icant canal stenos is or neural forami nal narrow ing. L1-L2: Facet arthro leigh. No signif icant canal stenos is or neural forami nal narrow ing. L2-L3: Minima l disc bulge asymme tric toward s the left and facet arthro leigh. No signif icant canal stenos is or neural forami nal narrow ing. L3-L4: Minima l disc bulge with facet arthro leigh. Minima l left neural forami nal narrow ing. No signif icant canal stenos is or right neural forami nal narrow ing. L4-L5: Diffus e disc bulge asymme tric toward s the right with ligame ntum flavum thicke jay and facet arthro leigh. Mild canal stenos is. Mild left and severe right neural forami nal narrow ing. There is crowdi ng and possib le compre ssion of the exitin g right L4 nerve root. L5-S1: Subtle left-s ided lamino eugene defect with no signif icant enhanc ing granul ation/ scar tissue . Disc bulge asymme tric toward s the left with facet arthro leigh. No signif icant canal stenos is. There is severe left and mild right neural forami nal narrow ing. There is crowdi ng and probab le compre ssion of the exitin g left L5 nerve root. IMPRES CARSON: No eviden ce of cauda equina compre ssion. No enhanc ing lesion s. Multil evel degene rative change s of the lumbar spine as detail ed above with severe right neural forami nal narrow ing at L4-L5 and severe left neural forami nal narrow ing at L5-S1 result ing in possib le compre ssion of the exitin g right L4 and left L5 nerve roots respec tively Electr onical ly Signed By: Sarah iraheta MD [email or web address] [facility] ([facility]) [address], [place], [address], 09/23/2023 12:19:42 02/08/2004/02/2023 imagi ng/di agnos tic resul t No observ ation record ed. [email or web address] Not Available 01/10 04:12:54 02/08/2005/08/2021 imagi ng/di agnos tic resul t No observ ation record ed. [email or web address] Not Available 01/10 04:13:29 Result Notes None recorded. Problems Name Problem SNOMED Code Status Onset Date Resolution Date Notes Provider Name and Address Organization Details Recorded Time No complaint s 914743748 Active Status: 'I'; Not Available [facility] 4 09:20:37 Impingeme nt syndrome of right shoulder region 477281972406 102 Active 2015 Problem Code: M75.41; Problem Code Type: ICD-10; Status: 'A'; Not Available [facility] 4 11:13:20 Impingeme nt syndrome of left shoulder region 172983161671 104 Active 2015 Problem Code: M75.42; Problem Code Type: ICD-10; Status: 'A'; Not Available [facility] 4 11:13:20 Degenerat ion of cervical intervert ebral disc 53414576 Active 2015 Problem Code: M50.32; Problem Code Type: ICD-10; Status: 'A'; Not Available [facility] 4 11:13:20 Pain of right shoulder joint 179122481611 94685 Active 2015 Problem Code: M25.511; Problem Code Type: ICD-10; Status: 'A'; Not Available [facility] 4 11:13:20 Pain of left shoulder joint 435646169543 12957 Active 2015 Problem Code: M25.512; Problem Code Type: ICD-10; Status: 'A'; Not Available [facility] 4 11:13:20 Idiopathi c osteoarth ritis 021270310 Active 2015 Problem Code: M17.0; Problem Code Type: ICD-10; Status: 'A'; Not Available [facility] 4 11:13:20 Osteoarth ritis of knee 374565616 Active 2023 NICA vargas [place] - [facility] 4 14:51:03 Bilateral osteoarth ritis of knees 324791578331 107 Active 2023 Isaiah Carr PA-C [address], [place], [address] , [facility] 07:48:40 Problem Notes None recorded. Procedures Surgical History Date Name Laterality Status Provider Name and Address Organization Details Recorded Time 05/22/2024 JZKNEE INJ Lavon completed Isaiah Carr PA-C [address], [place], [address], [facility] 05/22/2024 14:14:19 03/11/2024 JZKNEE INJ Lavon completed Isaiah Carr PA-C [address], [place], [address], [facility] 03/11/2024 14:32:26 01/10/2024 JZKNEE INJ Lavon completed Isaiah Carr PA-C [address], [place], [address], [facility] 01/10/2024 11:09:25 11/14/2023 JZKNEE INJ Lavon completed Isaiah Carr PA-C [address], [place], [address], [facility] 11/14/2023 07:48:40 08/29/2023 JZKNEE INJ Lavon completed Isaiah Carr PA-C [address], [place], [address], [facility] 08/29/2023 15:08:10 Imaging Results Imaging Date Name Status LastModified by Organiz ation Details LastModified Time 09/21/2023 MRI, lumbar spine, w/wo contrast completed [email or web address] [facility] ([facility]) [address], [place], [address], 09/23/2023 12:19:42 04/02/2023 imaging/diagn ostic result completed Information not available 02/08/2024 04:12:54 05/08/2021 imaging/diagn ostic result completed Information not available 02/08/2024 04:13:29 Procedure Notes None recorded. Medical Equipment None Reported. Allergies Allergen ID Allergen Name Allergen Category Reaction Reaction Severity Criticality Documentation Date Start Date Code Code System Note Provider Name and Address Organization Details Recorded Time 759059 Non-stero idal anti-infl ammatory agent (product) medicatio n Not available Not available Not available 08/12/20232018 59657 005 SNOMED Not Available [facility] 4 15:50:23 177111 acetamino phen / oxycodone medicatio n Not available Not available Not available 08/12/20232015 59155 3 RxNorm Not Available [facility] 4 15:50:23 966320 Medicinal product containin g penicilli n and acting as antibacte rial agent (product) medicatio n Not available Not available Not available 08/12/20232013 96450 05 SNOMED Not Available [facility] 4 15:50:23 Medications Name Sig Start Date Stop Date Status Note LastModified by Organization Details LastModified Time atorvastati n 40 mg tablet TAKE 1 TABLET BY MOUTH AT BEDTIME active Not Available Not Available No t Available prednisone 10 mg tablet PLEASE SEE ATTACHED FOR DETAILED DIRECTION S 08/28 completed Not Available Not Available Not Available gabapentin 600 mg tablet TAKE 1 TABLET BY MOUTH 3 TIMES A DAY X 30 DAYS active Not Available Not Available No t Available doxycycline hyclate 100 mg capsule TAKE 1 CAPSULE BY MOUTH TWICE A DAY FOR 10 DAYS 08/28 completed Not Available Not Available Not Available atorvastati n 20 mg tablet TAKE 1 TABLET BY MOUTH EVERY DAY active Not Available Not Available No t Available labetalol 200 mg tablet TAKE 2 TABLETS BY MOUTH TWICE A DAY active Not Available Not Available No t Available albuterol sulfate 2.5 mg/3 mL (0.083 %) solution for nebulizatio n INHALE THE CONTENTS OF 1 VIAL VIA NEBULIZER EVERY 6 HOURS NEEDED FOR WHEEZING/ SHORTNESS OF BREATH active Not Available Not Available No t Available azithromyci n 250 mg tablet TAKE 2 TABLETS BY MOUTH TODAY, THEN TAKE 1 TABLET DAILY FOR 4 DAYS DIRECTED active Not Available Not Available No t Available nifedipine ER 90 mg tablet,exte nded release TAKE 1 TABLET BY MOUTH EVERY DAY active Not Available Not Available No t Available metronidazo le 0.75 % (37.5 mg/5 gram) vaginal gel APPLY 1 APPLICATO RFUL INTRAVAGI REHAN DAILY AT BEDTIME X 5 DAYS 03/11 completed Not Available Not Available Not Available prednisone 20 mg tablet TAKE 2 TABS DAILY X 5 DAYS, 1 TAB DAILY X 3 DAYS, THEN 1/2 TAB DAILY X 3 DAYS 03/11 completed Not Available Not Available Not Available Vitamin B-12 500 mcg tablet TAKE 1 TABLET BY MOUTH EVERY DAY active Not Available Not Available No t Available chlorthalid one 25 mg tablet TAKE 1 TABLET BY MOUTH EVERY DAY active Not Available Not Available No t Available peg-electro lyte solution 420 gram oral solution DRINK 240 ML BY MOUTH EVERY 10 MINUTES 08/28 completed Not Available Not Available Not Available omeprazole 40 mg capsule,del ayed release TAKE 1 CAPSULE BY MOUTH DAILY BEFORE BREAKFAST FOR 90 DAYS 03/11 completed Not Available Not Available Not Available tramadol 50 mg tablet 1 TABLET BY MOUTH EVERY 6 HOURS,FOR 28 DAYS active Not Available Not Available No t Available acetaminoph en ER 650 mg tablet,exte nded release TAKE 2 TABLETS BY MOUTH EVERY 8 HOURS NEEDED FOR FEVER active Not Available Not Available No t Available lorazepam 0.5 mg tablet PLEASE SEE ATTACHED FOR DETAILED DIRECTION S active Not Available Not Available No t Available pantoprazol e 40 mg tablet,audie yed release TAKE 1 TABLET BY MOUTH TWICE A DAY FOR 30 DAYS active Not Available Not Available No t Available prednisone 50 mg tablet TAKE 1 TABLET BY MOUTH EVERY DAY FOR 5 DAYS 03/11 completed Not Available Not Available Not Available gabapentin 300 mg capsule TAKE 1 CAPSULE BY MOUTH IN THE MORNING AND 1 CAP AT BEDTIME X 1 WEEK, IF INSUFFICI ENT PAIN RELIEF, INCREASE TO 1 CAPSULE IN THE MORNING, 1 IN THE AFTERNOON , AND 1 AT BEDTIME. STOP LYRICA active Not Available Not Available No t Available doxazosin 4 mg tablet TAKE 1 TABLET BY MOUTH EVERYDAY AT BEDTIME active Not Available Not Available No t Available montelukast 10 mg tablet TAKE 1 TABLET BY MOUTH EVERY DAY active Not Available Not Available No t Available hydrochloro thiazide 25 mg tablet TAKE 1 TABLET BY MOUTH EVERY DAY active Not Available Not Available No t Available furosemide 20 mg tablet TAKE 1 AND 1/2 TABLETS BY MOUTH EVERY DAY active Not Available Not Available No t Available irbesartan 150 mg tablet TAKE 1 TABLET BY MOUTH EVERY DAY active Not Available Not Available No t Available methylpredn isolone 4 mg tablets in a dose pack TAKE 6 TABLETS ON DAY 1 DIRECTED ON PACKAGE AND DECREASE BY 1 TAB EACH DAY FOR A TOTAL OF 6 DAYS 08/28 completed Not Available Not Available Not Available irbesartan 300 mg tablet TAKE 1 TABLET BY MOUTH EVERY DAY active Not Available Not Available No t Available Ventolin HFA 90 mcg/actuati on aerosol inhaler INHALE 2 PUFFS 4 TIMES A DAY NEEDED FOR WHEEZING active Not Available Not Available No t Available oxycodone 5 mg tablet TAKE 1 TABLET BY MOUTH EVERY 6 HOURS NEEDED FOR PAIN 03/11 completed Not Available Not Available Not Available duloxetine 30 mg capsule,del ayed release TAKE 1 CAPSULE BY MOUTH EVERY DAY active Not Available Not Available No t Available duloxetine 60 mg capsule,del ayed release TAKE 1 CAPSULE BY MOUTH DAILY,X90 DAYS. TO BE TAKEN WITH 30 MG FOR TOTAL OF 90 MG DAILY. active Not Available Not Available No t Available pregabalin 75 mg capsule TAKE 1 CAPSULE TWICE A DAY BY ORAL ROUTE DIRECTED FOR 30 DAYS, FOR PAIN. 03/11 completed Not Available Not Available Not Available nifedipine NIFEdipin e 10MG Capsule 08/10 completed Statu s: 'Disc ontin ued'; Not Available Not Available Not Available calcium 600 mg (as carbonate)- vitamin D3 10 mcg (400 unit) tablet TAKE 1 TABLET BY MOUTH EVERY DAY. NOT COVERED active Not Available Not Available No t Available Symbicort 160 mcg-4.5 mcg/actuati on HFA aerosol inhaler INHALE 2 PUFFS TWICE A DAY IN THE MORNING AND IN THE EVENING RINSE MOUTH/THR OAT AFTER USE active Not Available Not Available No t Available levocetiriz ine 5 mg tablet TAKE 1 TABLET BY MOUTH EVERY EVENING active Not Available Not Available No t Available diclofenac 1 % topical gel APPLY 2 GRAM TOPICALLY 4 TIMES A DAY active Not Available Not Available No t Available Wegovy 1 mg/0.5 mL subcutaneou s pen injector active Not Available Not Available Not Available Wegovy 0.25 mg/0.5 mL subcutaneou s pen injector INJECT 0.5 MG SUBCUTANE OUS INFUSION EVERY WEEK,X4 WEEK(S) active Not Available Not Available No t Available Vitals Date Recorded Body height Body mass index (BMI) Body weight Provider Name and Address Organization Details Last Updated DateTime 09/24/2023 170.18 cm 51.4 kg/m2 817691.3 g Willa Blue [facility] 09/24/2023 13:39:19 Date Recorded Body height Body mass index (BMI) Body weight Provider Name and Address Organization Details Last Updated DateTime 11/14/2023 170.18 cm 51.4 kg/m2 271820.3 g Tiara Armstrong [facility] 11/14/2023 08:41:32 Date Recorded Body height Body mass index (BMI) Body weight Provider Name and Address Organization Details Last Updated DateTime 03/11/2024 170.18 cm 51.4 kg/m2 773221.3 g [facility] 03/11/2024 14:02:07 Date Recorded Body height Body mass index (BMI) Body weight Provider Name and Address Organization Details Last Updated DateTime 05/22/2024 170.18 cm 51.4 kg/m2 390165.3 g Srinivas [facility] 05/22/2024 14:13:42 Social History None recorded. Functional Status None recorded. Mental Status None recorded. Family History Nothing Reported. Medical History No medical history recorded. Gynecological HistoryNo gynecological history recorded. Obstetrics History GPAL:G 0 P 0 0 0 0 Past Encounters Encounter ID Performer Location Encounter Start Date Encounter Closed Date Diagnosis/Indication Diagnosis SNOMED-CT Code Diagnosis ICD10 Code [id number] JACKIE Mcintosh [address] [place] [address] 08/29/2023 14:47:22 08/29/2023 14:56:15 Osteoarthritis of knee 263463789 M17.9 [id number] Lucina Peña CNP [facility] [address] [place] [address] 09/17/2023 12:46:44 09/30/2023 13:57:05 Lumbar radiculopathy 666996325 M54.16 Cervical radiculopathy 36598493 M54.12 [id number] Lucina Peña CNP [facility] [address] [place] [address] 09/24/2023 13:31:27 10/03/2023 15:48:20 Low back pain 913447913 M54.50 Lumbar radiculopathy 128 736767 M54.16 [id number] Isaiah Carr PA-C [place] [address] [place] [address] 11/14/2023 08:35:54 12/09/2023 12:46:16 Bilateral osteoarthritis of knees 5521226908 13266 M17.0 [id number] Isaiah Carr PA-C [place] [address] [place] [address] 01/10/2024 13:53:41 02/05/2024 08:13:01 Bilateral osteoarthritis of knees 3598046712 28968 M17.0 [id number] Isaiah Carr PA-C [place] [address] [place] [address] 03/11/2024 13:53:08 04/06/2024 15:38:42 Bilateral osteoarthritis of knees 7711494168 28675 M17.0 [id number] Isaiah Carr PA-C [place] [address] [place] [address] 05/22/2024 14:03:27 05/22/2024 14:14:36 Bilateral osteoarthritis of knees 6050950092 42107 M17.0 Health Concerns Section Related Observation LastModified by Organization Detai ls LastModified Time None Recorded Concern Status LastModified by Organization Details LastModified Time None Recorded Advance Directives Directive None Recorded Payers Encounter Date Sequence Insurance Name Policy Number Policy Asencio Covered Member ID Asencio Member ID Guarantor Name 09/24/2023 1 [facility] [employer] - DOS ON OR AFTER 2022 - ONE CARE (MEDICARE REPLACEMENT/ADV ANTAGE - HMO) Tanisha Pelayo [id number] Tnaisha Pelayo 11/14/2023 1 [facility] ALL[facility] - DOS ON OR AFTER 2022 - ONE CARE (MEDICARE REPLACEMENT/ADV ANTAGE - HMO) Tanisha Pelayo [id number] Tanisha Pelayo 01/10/2024 1 [facility] - DOS ON OR AFTER 2022 - ONE CARE (MEDICARE REPLACEMENT/ADV ANTAGE - HMO) Tanisha Teagues [id number] Tanisha E Pelayo 03/11/2024 1 [facility] - DOS ON OR AFTER 2022 - ONE CARE (MEDICARE REPLACEMENT/ADV ANTAGE - HMO) Tanisha E Pelayo [id number] Tanisha Manjit MyersPelayo 05/22/2024 1 [facility] - DOS ON OR AFTER 2022 - ONE CARE (MEDICARE REPLACEMENT/ADV ANTAGE - HMO) Tanisha Teagues [id number] Tanishathiago Pelayo Notes Date Note Type Note Provider Name and Address Organization Details Recorded Time 09/24/2023 text/html I am seeing the patient under the general supervision of Dr. Aragon who was available but who did not see the patient. HPI:63-year-old woman presents for lumbar MRI review. She has low back pain that began years ago but has recently been getting worse, most notably over the last few weeks. Patient reports her back and right leg pain was so severe that she went to the emergency room on 09/04/2023, and was given Prednisone and Oxycodone, which helped a little. Currently, she is taking Tylenol and Gabapentin. Reports constant pain in all positions including sitting, standing, walking, and bending forward. She ambulates with a cane and feels that her balance is off. The new onset of urinary urgency and saddle anesthesia seems to be improving since last encounter.Of note, she had a microdiscectomy and decompression L5-S1 left side with Dr. Mixon 05/07/2022.She also reports bilateral knee pain and is trying to lose weight before TKR. RADICULITIS: Right lower extremity pain/numbness/tinglin g/weakness PFMSH and ROS have been reviewed, updated, and it is located in the patient's chart. PRIOR TREATMENTS/MEDICATION S:prednisone, Tylenol, Lyrica, gabapentin, Tramadol, oxycodone, injection therapy years ago WORK STATUS: Disabled PHYSICAL EXAM: The patient is well appearing and in no apparent distress. Alert and oriented x3. Patient had difficulty arising from seated position. Gait is antalgic with cane. Posture is slightly kyphotic. Right lower extremity 3-4/5 strength compared to contralateral side 5/5 strength. Sensation intact distally. IMAGING:L-spine MRI obtained 09/21/23 independently reviewed by myself and Dr. Mixon reveals degenerative changes including narrowed disc spaces, disc dessication, osteophyte formations, modic endplate changes, facet arthropathy, and atrophy of paraspinal muscles.L4-L5 disc bulge with moderate-severe right foraminal narrowing and crowding of the exiting right L4 nerve root, with possible compression.L5-S1 disc bulge with moderate-severe left foraminal narrowing and crowding of exiting left L5 nerve root. with possible compression.Incidenta l finding of small renal cysts, which do not require dedicated follow up per radiologist. Patient has history of CKD. IMPRESSION: low back pain with RLE radiculopathy PLAN: Findings discussed with the patient today. Case discussed with Dr. Mixon.1. Referral to [facility] for eval and injection therapy. She reports back injections years ago that were helpful before her back surgery.2. Recommend physical therapy for lumbar stabilization and BLE strengthening.3. Pain management: continue Tylenol and Gabapentin. She cannot take NSAIDs due to history of kidney disease.4. If no improvement with conservative therapy, will refer to Dr. Mixon to discuss surgical options. FOLLOW UP: 8 weeks Speech recognition weigh and charge worker software was used to create portions of this document. An attempt at proofreading has been made to minimize errors. Please call for corrections. Lucina Peña, MOBILE HOME INSTALLER [address], [place], [address], [facility] - [facility] 09/24/2023 18:35:10 OBGyn Episode No OBEpisode recorded.
--- OUTSIDE RECORDS SUMMARY | 2024-05-28 13:45 | XMS_ITS | Continuity of Care Document ---
Author Organization MD - [facility], [facility] 3rd floor Address [address] [place] [address] Care Team Providers Care Concrete Panel Installer Name Role Phone BALDEMAR LE Primary Care Provider [phone] Assessment Encounter Date Assessment Date Assessment LastModified by Organization Details LastModified Time 05/22/2024 05/22/2024 I am seeing the patient [...] Not available Lab None recorded . Referral None recorded . Procedures None recorded . Surgeries None recorded . Imaging None recorded . Medication Orders None recorded . Patient TargetsNo targets recorded. Patient InstructionsNo instructions recorded. Reason for Referral None Reported. Problems Name Problem SNOMED Code Status Onset Date Resolution Date Notes Provider Name and Address Organization Details Recorded Time No complaint s 516034161 Active Status: 'I'; Not Available [facility] 4 09:20:37 Impingeme nt syndrome of right shoulder region 540972198952 102 Active 2015 Problem Code: M75.41; Problem Code Type: ICD-10; Status: 'A'; Not Available [facility] 4 11:13:20 Impingeme nt syndrome of left shoulder region 748281809915 104 Active 2015 Problem Code: M75.42; Problem Code Type: ICD-10; Status: 'A'; Not Available [facility] 4 11:13:20 Degenerat ion of cervical intervert ebral disc 59815163 Active 2015 Problem Code: M50.32; Problem Code Type: ICD-10; Status: 'A'; Not Available [facility] 4 11:13:20 Pain of right shoulder joint 314923144149 04489 Active 2015 Problem Code: M25.511; Problem Code Type: ICD-10; Status: 'A'; Not Available [facility] 4 11:13:20 Pain of left shoulder joint 192348136888 52507 Active 2015 Problem Code: M25.512; Problem Code Type: ICD-10; Status: 'A'; Not Available [facility] 4 11:13:20 Idiopathi c osteoarth ritis 468228889 Active 2015 Problem Code: M17.0; Problem Code Type: ICD-10; Status: 'A'; Not Available [facility] 4 11:13:20 Osteoarth ritis of knee 564301432 Active 2023 NICA MCNULTY [facility] 4 14:51:03 Bilateral osteoarth ritis of knees 337858510562 107 Active 2023 Isaiah Carr PA-C [address], [place], [address] , [facility], [facility] 4 07:48:40 Problem Notes None recorded. Procedures Surgical History Date Name Laterality Status Provider Name and Address Organization Details Recorded Time 05/22/2024 LuanaZKNEE INJ Lavon completed Isaiah Carr PA-C [address], [place], [address], [facility], [facility] 05/22/2024 14:14:19 03/11/2024 JZKNEE INJ Lavon completed Isaiah Carr PA-C [address], [place], [address], [facility], [facility] 03/11/2024 14:32:26 01/10/2024 JZKNEE INJ Lavon completed Isaiah Carr PA-C [address], [place], [address], [facility], [facility] 01/10/2024 11:09:25 11/14/2023 JZKNEE INJ Lavon completed Isaiah Carr PA-C [address], [place], [address], [facility], [facility] 11/14/2023 07:48:40 08/29/2023 JZKNEE INJ Lavon completed Isaiah Carr PA-C [address], [place], [address], [facility], [facility] 08/29/2023 15:08:10 Imaging Results None recorded. Procedure Notes None recorded. Medical Equipment None Reported. Allergies Allergen ID Allergen Name Allergen Category Reaction Reaction Severity Criticality Documentation Date Start Date Code Code System Note Provider Name and Address Organization Details Recorded Time 203532 Non-stero idal anti-infl ammatory agent (product) medicatio n Not available Not available Not available 08/12/20232018 73449 005 SNOMED Not Available [facility] 4 15:50:23 437284 acetamino phen / oxycodone medicatio n Not available Not available Not available 08/12/20232015 16101 3 RxNorm Not Available [facility] 4 15:50:23 544114 Medicinal product containin g penicilli n and acting as antibacte rial agent (product) medicatio n Not available Not available Not available 08/12/20232013 65075 05 SNOMED Not Available [facility] 4 15:50:23 Medications Name Sig Start Date [...] Updated DateTime 05/22/2024 170.18 cm 51.4 kg/m2 709202.3 g Srinivas Espinoza [place] - [facility] 05/22/2024 14:13:42 Social History None recorded. Functional Status None recorded. Mental Status None recorded. Family History Nothing Reported. Medical History No medical history recorded. Gynecological HistoryNo gynecological history recorded. Obstetrics History GPAL:G 0 P 0 0 0 0 Past Encounters Encounter ID Performer Location Encounter Start Date Encounter Closed Date Diagnosis/Indication Diagnosis SNOMED-CT Code Diagnosis ICD10 Code [id number] [facility] [address] [place] [address] 05/22/2024 14:03:27 05/22/2024 14:14:36 Bilateral osteoarthritis of knees [id number] 81585 M17.0 Health Concerns Section Related Observation LastModified by Organization Detai ls LastModified Time None Recorded Concern Status LastModified by Organization Details LastModified Time None Recorded Payers Encounter Date Sequence Insurance Name Policy Number Policy Asencio Covered Member ID Asencio Member ID Guarantor Name 05/22/2024 1 [facility] - DOS ON OR AFTER 2022 - ONE CARE (MEDICARE REPLACEMENT/ADV ANTAGE - HMO) Tanisha E Pelayo [id number] Tanisha E Pelayo OBGyn Episode No OBEpisode recorded.
--- NOTE | 2024-05-28 14:18 | HO.NEPHOV ---
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 She has been closely followed by her primary care physician. She denies taking any excessive nonsteroidal anti-inflammatories for her back pain. She has no hematuria or flank pain. She denies fever, chills or rigors. Her blood pressure has been at goal. Her renal functions have been stable. She has been having some edema and was started on lasix. She does not have any worsening pedal edema, chest pain, shortness of breath, paroxysmal nocturnal dyspnea, orthopnea. She is compliant with her CPAP [facility] Medical History (Updated 08/02/23 @ 06:43 by Wilmer Hayward MD) Essential (primary) hypertension Chronic kidney disease, stage 3a Surgical History History of hysterectomy History of detached retina repair Hx of cholecystectomy History of back surgery Family History Mother Diabetes CHF (congestive heart failure) Father Diabetes Social History Alcohol intake: never Patient Tobacco Use Status: Never used Tobacco Current occupational status: unemployed Review of Systems Const All systems reviewed & are unremarkable except as noted in HPI and below Physical Exam Vital Signs: BMI result Body Mass Index 53.0 Const General: comfortable and no acute distress Orientation/consciousness: patient oriented x3 HEENT Head: Yes normocephalic Mouth: Normal oral and palatal mucosa present Eyes EOM: EOMs intact bilaterally Neck Neck: Yes supple Resp Auscultation: clear to auscultation bilaterally Cardio Jugular venous distension: no JVD Rate: regular rate GI Palpation (GI): Soft to palpation Auscultation: normal bowel sounds General: Yes no CVA tenderness Back/Spine/Pelvis Back: no CVA tenderness Skin General skin exam: no rashes or lesions noted Neuro General: patient oriented x3 and moves all extremities Extrem General: Yes no pedal edema Assessment & Plan Assessment & Plan (1) Chronic kidney disease, stage 3a: Code(s): N18.31 - Chronic kidney disease, stage 3a Category: Medical (2) Essential (primary) hypertension: Code(s): I10 - Essential (primary) hypertension Category: Medical Plan Tanisha has longstanding hypertension mild CKD. Her renal functions are close to baseline. Her blood pressure has been at goal. She is on angiotensin receptor klever. She is tolerating statins. She does not have any orthostatic symptoms. She avoids nonsteroidal anti-inflammatories. She maintains good hydration. I did not make any medication changes today. All the lab data were discussed. All questions were answered. Follow-up appointment given Orders: Orders Blood Urea Nitrogen 6 Months I10 - Essential (primary) hypertension, N18.31 - Chronic kidney disease, stage 3a Creatinine 6 Months I10 - Essential (primary) hypertension, N18.31 - Chronic kidney disease, stage 3a Electrolytes 6 Months I10 - Essential (primary) hypertension, N18.31 - Chronic kidney disease, stage 3a Coding Level of Care Code Tele Est Pt Level 4 (96543) Diagnoses Chronic kidney disease, stage 3a N18.31 Essential (primary) hypertension I10
[2024-05-28 14:19] VITALS: BMI 53.0
== END 2024-05-28 16:49 | disposition home or self-care (01) ==
PROVIDERS: PCP Internal Medicine; Visit Provider Internal Medicine Nephrology
DX: N18.31 Chronic kidney disease, stage 3a (principal); I10 Essential (primary) hypertension
CPT/HCPCS: 99214

== ENCOUNTER → 2024-05-28 13:42 | Outpatient (BNVA) | payer MEDICARE, SELFPAY | PROVIDERS: PCP Internal Medicine; Visit Provider Internal Medicine Nephrology ==

== ENCOUNTER 2024-11-26 13:49 | Outpatient (AMB) | payer MEDICARE, SELFPAY ==
--- NOTE | 2024-11-26 13:54 | HO.NEPHOV ---
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 She has been closely followed by her primary care physician. She denies taking any excessive nonsteroidal anti-inflammatories for her back pain. She has no hematuria or flank pain. She denies fever, chills or rigors. Her blood pressure has been at goal. Her renal functions have been stable. She has been having some edema which has improved on diuretics. She does not have any worsening pedal edema, chest pain, shortness of breath, paroxysmal nocturnal dyspnea, orthopnea. She is compliant with her CPAP [facility] Medical History (Updated 08/02/23 @ 06:43 by Wilmer Hayward MD) Essential (primary) hypertension Chronic kidney disease, stage 3a Surgical History History of hysterectomy History of detached retina repair Hx of cholecystectomy History of back surgery Family History Mother Diabetes CHF (congestive heart failure) Father Diabetes Social History Alcohol intake: never Patient Tobacco Use Status: Never used Tobacco Current occupational status: unemployed Review of Systems Const All systems reviewed & are unremarkable except as noted in HPI and below Physical Exam Vital Signs: Last Vital Signs BP 122/80 11/26/24 13:56 BMI result Body Mass Index 48.2 Const General: comfortable and no acute distress Orientation/consciousness: patient oriented x3 HEENT Head: Yes normocephalic Mouth: Normal oral and palatal mucosa present Eyes EOM: EOMs intact bilaterally Neck Neck: Yes supple Resp Auscultation: clear to auscultation bilaterally Cardio Jugular venous distension: no JVD Rate: regular rate GI Palpation (GI): Soft to palpation Auscultation: normal bowel sounds General: Yes no CVA tenderness Back/Spine/Pelvis Back: no CVA tenderness Skin General skin exam: no rashes or lesions noted Neuro General: patient oriented x3 and moves all extremities Extrem General: Yes no pedal edema Results Reviewed Nephrology Results: Sodium, (135-145) 143 mmol/L 12/03/23 Potassium, (3.3-5.1) 3.5 mmol/L 12/03/23 Chloride, (96-108) 111 mmol/L H 12/03/23 Carbon Dioxide, (22-29) 24 mmol/L 12/03/23 BUN, (9-16) 25 mg/dL H 12/03/23 Creatinine, (0.5-1.4) 1.39 mg/dL 12/03/23 Calcium, (8.4-10.2) 8.9 mg/dL 12/03/23 Urine Creatinine 239.39 mg/dL 12/03/23 Protein/Creatinin Ratio, (<0.2) 0.13 12/03/23 Assessment & Plan Assessment & Plan (1) Chronic kidney disease, stage 3a: Code(s): N18.31 - Chronic kidney disease, stage 3a Category: Medical (2) Essential (primary) hypertension: Code(s): I10 - Essential (primary) hypertension Category: Medical Plan Tanisha has longstanding hypertension mild CKD. Her renal functions are close to baseline. Her blood pressure has been at goal. She is on angiotensin receptor klever. She is tolerating statins. She does not have any orthostatic symptoms. She avoids nonsteroidal anti-inflammatories. She maintains good hydration. When she lose weight, we may be able to cut back on some BP medications. I did not make any medication changes today. All the lab data were discussed. All questions were answered. Follow-up appointment given Orders: Orders Creatinine 6 Months I10 - Essential (primary) hypertension, N18.31 - Chronic kidney disease, stage 3a Blood Urea Nitrogen 6 Months I10 - Essential (primary) hypertension, N18.31 - Chronic kidney disease, stage 3a Electrolytes 6 Months I10 - Essential (primary) hypertension, N18.31 - Chronic kidney disease, stage 3a Coding Level of Care Code Est Pt Level 4 (36468) Diagnoses Chronic kidney disease, stage 3a N18.31 Essential (primary) hypertension I10
[2024-11-26 13:56] VITALS: BP 122/80; BMI 48.2
--- OUTSIDE RECORDS SUMMARY | 2024-11-26 15:04 | XMS_ITS | Data Portability ---
Author Organization [facility], [facility] Address [address] [place] [address] Care Team Providers Care Theatrical Dresser Name Role Phone BALDEMAR LE Primary Care Provider Assessment Encounter Date Assessment Date Assessment LastModified by Organization Details LastModified Time 03/11/2024 03/11/2024 I am seeing the patient today under the supervision of Dr Ocampo who was available but who did not see the patient. brenda Not available 03/11/2024 14:32:43 05/22/2024 05/22/2024 I am seeing the patient today under the supervision of Dr Ocampo who was available but who did not see the patient. brenda Not available 05/22/2024 14:14:25 07/29/2024 07/29/2024 I am seeing the patient today under the supervision of Dr Ocampo who was available but who did not see the patient. josh Not available 07/29/2024 13:33:52 10/08/2024 10/08/2024 I am seeing the patient today under the supervision of Dr Ocampo who was available but who did not see the patient. josh Not available 10/08/2024 14:53:55 Plan of Treatment Reminders Order Date Submit Date Provider Last Modified By Organization Details Last Modified Time Details Appointments RECHECK 15 2024 02:30P Mable Carr PA-C Not available Not available Not available Lab None recorded. Referral pain managemen t referral - Lumbar radiculop athy - eval for L Spine injs 2024 025 [email or web address] Not available 07/28/2024 12:04:44 physical therapist referral - Evaluate & RxCervica l Stabiliza tion Program [facility], [address], [place], [address], 07/07/2024 16:03:04 Procedures None recorded. Surgeries None recorded. Imaging XR, cervical spine, 2 or 3 view - room 316 2 views [facility] [address] [facility] [facility], [address], [address], 07/07/2024 16:03:05 Medication Orders None recorded. Patient TargetsNo targets recorded. Patient InstructionsNo instructions recorded. Reason for Referral Pain Management Referral for Lumbar radiculopathy Lumbar radiculopathy - eval for L Spine injs Referring Physician: Lucina Peña, Orthopedic Surgery, Encounter Date: 06/29/2024 Physical Therapist Referral for Neck pain Evaluate & RxCervical Stabilization Program Referring Physician: Lucina Peña Orthopedic Surgery, Encounter Date: 06/29/2024 Results Created Date Observation Date Name Description Value Unit Range Abnormal Flag Note LastModifiedBy Organization Detail LastModifiedTime 06/29/19 25 06/29/2024 XR, cervi elizabeth spine , 2 or 3 view http:/ [email or web address] ?Encry pted=s hAaTro YD8dLq bEUv6g %2BXZw aYqtaq 0bqfl% 2Fg9IQ a4ajBk vP9nXo QUaueC m3YtLR FvZlgJ JJ8mAn HZtai3 8c4487 AC0Kqb 3uCVKG mKiQtr MwF INTERFACE [facility] [address], [place], [address], 06/29/2024 15:21:43 06/29/19 25 06/29/2024 XR, cervi elizabeth spine , 2 or 3 view http:/ [email or web address] ?Encry pted=s hAMario YD8dLq bEUv6g %2BXZw aYqtaq 0bqfl% 2Fg9IQ a4ajBk vP9nXo QUaueC m3YtLR FvZlgJ JJ8mAn HZtai3 2h7626 AC0Kqb 3uCVKG mKiQtr MwF INTERFACE [facility] [address] [facility] [address], [place], [address], 06/29/2024 15:21:45 Result Notes Documentation Provider Name and Address Organization Details Recorded Time Xr, Cervical Spine, 2 Or 3 View : [email or web address] Encrypted=plKtPjdOZ2lOmsN Uv6g%7BDIqtLmart7tvuz%2Fg 9MSs2muPhaB8yCjLPeikWr2Vw PBDmVgpAIT5kXeBSyhl84m428 3ZX4Gwj2zGQUVzGkBjmNqC Not Available [facility] 06/29/2024 15:21: 44 Xr, Cervical Spine, 2 Or 3 View : [email or web address] Encrypted=sxQbVmvNE0lTezS Uv6g%0BYDznAinph2kacg%2Fg 6JBz5rjNbcG8vPtCNgvyUp1Yd NCZzTelYWO4aLiZBehm56y910 4WT8Mtg7cMPZQmKgNawKqQ Not Available [facility] 06/29/2024 15:21: 46 Problems Name Problem SNOMED Code Status Onset Date Resolution Date Notes Provider Name and Address Organization Details Recorded Time No complaint s 816415630 Active Status: 'I'; Not Available [facility] 4 09:20:37 Impingeme nt syndrome of right shoulder region 280409358647 102 Active 2015 Problem Code: M75.41; Problem Code Type: ICD-10; Status: 'A'; Not Available [facility] 4 11:13:20 Impingeme nt syndrome of left shoulder region 485072628689 104 Active 2015 Problem Code: M75.42; Problem Code Type: ICD-10; Status: 'A'; Not Available [facility] 4 11:13:20 Degenerat ion of cervical intervert ebral disc 77198618 Active 2015 Problem Code: M50.32; Problem Code Type: ICD-10; Status: 'A'; Not Available [facility] 4 11:13:20 Pain of right shoulder joint 700758786658 45799 Active 2015 Problem Code: M25.511; Problem Code Type: ICD-10; Status: 'A'; Not Available [facility] 4 11:13:20 Pain of left shoulder joint 229547642713 35156 Active 2015 Problem Code: M25.512; Problem Code Type: ICD-10; Status: 'A'; Not Available [facility] 4 11:13:20 Idiopathi c osteoarth ritis 234111203 Active 2015 Problem Code: M17.0; Problem Code Type: ICD-10; Status: 'A'; Not Available [facility] 4 11:13:20 Osteoarth ritis of knee 892096538 [facility] 2023 [facility] 4 14:51:03 Bilateral osteoarth ritis of knees 676859328726 107 Active 2023 Isaiah Carr PA-C [email or web address], [place], [address] , [facility] 4 07:48:40 Problem Notes None recorded. Procedures Surgical History Date Name Laterality Status Provider Name and Address Organization Details Recorded Time 10/08/2024 HAILEY INJ Lavon completed Isaiah Carr PA-C [email or web address], [place], [address], [facility] 10/08/2024 14:53:50 07/29/2024 HAILEY INJ Lavon completed Isaiah Carr PA-C [email or web address], [place], [address], [facility] 07/29/2024 13:33:47 05/22/2024 JZKNEE INJ Lavon completed Isaiah Carr PA-C [address] [facility], [place], [address], [facility] 05/22/2024 14:14:19 03/11/2024 JZKNEE INJ Lavon completed Isaiah Carr PA-C [address] [facility], [place], [address], [facility] 03/11/2024 14:32:26 01/10/2024 JZKNEE INJ Lavon completed Isaiah Carr PA-C [address] [facility], [place], [address], [facility] 01/10/2024 11:09:25 11/14/2023 JZKNEE INJ Lavon completed Isaiah Carr PA-C [address] [facility], [place], [address], [facility] 11/14/2023 07:48:40 08/29/2023 JZKNEE INJ Lavon completed Isaiah Carr PA-C [address] [place] [address], [address], [facility] 08/29/2023 15:08:10 Imaging Results None recorded. Procedure Notes None recorded. Medical Equipment None Reported. Allergies Allergen ID Allergen Name Allergen Category Reaction Reaction Severity Criticality Documentation Date Start Date Code Code System Note Provider Name and Address Organization Details Recorded Time 323537 Non-stero idal anti-infl ammatory agent (product) medicatio n Not available Not available Not available 08/12/20232018 97877 005 SNOMED Not Available [facility] 4 15:50:23 520818 acetamino phen / oxycodone medicatio n Not available Not available Not available 08/12/20232015 41555 3 RxNorm Not Available [facility] 4 15:50:23 651779 Product containin g penicilli n (product) medicatio n Not available Not available Not available 08/12/20232013 63823 8001 SNOMED Not Available [facility] 4 15:50:23 Medications Name Sig Start [...] 1 TABLET DAILY FOR 4 DAYS DIRECTED 10/08 completed Not Available Not Available Not Available fosfomycin tromethamin e 3 gram oral packet TAKE 1 PACK/PACK ET BY MOUTH EVERY 72 HOURS FOR 9 DAYS. DISSOLVE IN 4 OUNCES OF WATER active Not Available Not Available No t [...] Available prednisone 20 mg tablet TAKE 2 TABLETS BY MOUTH EVERY DAY FOR 5 DAYS active Not Available Not Available No t Available chlorthalid one 25 mg tablet TAKE 1 TABLET BY MOUTH EVERY DAY active Not Available Not Available No t Available sulfamethox azole 800 mg-trimetho prim 160 mg tablet TAKE 1 TABLET BY MOUTH EVERY 12 HOURS FOR 5 DAYS active Not Available Not Available No t Available peg-electro lyte solution 420 gram oral solution DRINK 240 ML BY MOUTH EVERY 10 MINUTES 08/28 completed Not Available Not Available Not Available omeprazole 40 mg capsule,del ayed release TAKE 1 CAPSULE BY MOUTH DAILY BEFORE BREAKFAST FOR 90 DAYS 03/11 completed Not Available Not Available Not Available tramadol 50 mg tablet TAKE 1 TABLET BY MOUTH EVERY 6 HOURS,X28 DAYS,INST R:CSA 28 DAY active Not Available Not Available No t Available acetaminoph en ER 650 mg tablet,exte nded release TAKE 2 TABLETS BY MOUTH EVERY 8 HOURS NEEDED FOR FEVER active Not Available Not Available No t Available lorazepam 0.5 mg tablet PLEASE SEE ATTACHED FOR DETAILED DIRECTION S active Not Available Not Available No t Available cyanocobala min (vit B-12) 500 mcg tablet TAKE 1 TABLET BY MOUTH EVERY DAY active Not Available Not Available No t Available benzonatate 100 mg capsule TAKE 1 CAPSULE BY MOUTH 3 TIMES A DAY FOR 7 DAYS 10/08 completed Not Available Not Available Not Available pantoprazol e 40 mg tablet,audie yed release TAKE 1 TABLET BY MOUTH TWICE A DAY FOR 30 DAYS active Not Available Not Available No t Available prednisone 50 mg tablet TAKE 1 TABLET BY MOUTH EVERY DAY FOR 5 DAYS 03/11 completed Not Available Not Available Not Available methimazole 5 mg tablet TAKE 1 TABLET BY MOUTH DAILY X 60 DAYS active Not Available Not Available No t Available gabapentin 300 mg capsule TAKE 1 [...] Available Not Available No t Available irbesartan 75 mg tablet TAKE 1 TABLET BY MOUTH [...] completed Not Available Not Available Not Available albuterol sulfate HFA 90 mcg/actuati on aerosol inhaler INHALE 2 PUFFS BY MOUTH 4 TIMES A DAY NEEDED FOR WHEEZING active Not Available Not Available No t Available methimazole 10 mg tablet TAKE 1 TABLET BY MOUTH EVERY DAY active Not Available Not Available No t Available irbesartan 300 mg tablet TAKE 1 TABLET BY MOUTH EVERY DAY active Not Available Not Available No t Available oxycodone 5 mg tablet TAKE 1 TABLET BY MOUTH EVERY 6 HOURS NEEDED FOR PAIN 03/11 completed Not Available Not Available Not Available azithromyci n 500 mg tablet TAKE 1 TABLET BY MOUTH EVERY DAY FOR 5 DAYS active Not Available Not Available No t Available nitrofurant oin monohydrate /macrocryst als 100 mg capsule TAKE 1 CAPSULE BY MOUTH TWICE A DAY FOR 7 DAYS 10/08 completed Not Available Not Available Not Available [...] on HFA aerosol inhaler INHALE 2 PUFFS BY MOUTH 2 TIMES A DAY,INSTR :IN THE MORNING AND THE EVENING active Not Available Not Available No [...] 0.25 mg/0.5 mL subcutaneou s pen injector 0.25 MG SUBCUTANE OUSLY EVERY WEEK,X4 WEEKS IN THE ABDOMEN/T HIGH/UPPE R ARM. TITRATION IN 4 WEEKS. active Not Available Not Available No t Available Zepbound 2.5 mg/0.5 mL subcutaneou s pen injector INJECT 1 PEN INTO THE SKIN ONCE WEEKLY ROTATE INJECTION SITES active Not Available Not Available No t Available Vitals Date Recorded Body height Body mass index (BMI) Body weight Provider Name and Address Organization Details Last Updated DateTime 06/29/2024 170.18 cm 51.4 kg/m2 188939.3 g [facility] 06/29/2024 14:51:11 Date Recorded Body height Body mass index (BMI) Body weight Provider Name and Address Organization Details Last Updated DateTime 07/29/2024 170.18 cm 51.4 kg/m2 134591.3 g [facility] 07/29/2024 13:23:39 Date Recorded Body height Body mass index (BMI) Body weight Provider Name and Address Organization Details Last Updated DateTime 10/08/2024 170.18 cm 51.4 kg/m2 709373.3 g [facility] 10/08/2024 14:52:39 Date Recorded Body height Body mass index (BMI) Body weight Provider Name and Address Organization Details Last Updated DateTime 03/11/2024 170.18 cm 51.4 kg/m2 175344.3 g [facility] 03/11/2024 14:02:07 Date Recorded Body height Body mass index (BMI) Body weight Provider Name and Address Organization Details Last Updated DateTime 05/22/2024 170.18 cm 51.4 kg/m2 562680.3 g [facility] 05/22/2024 14:13:42 Social History None recorded. Functional Status None recorded. Mental Status None recorded. Family History Nothing Reported. Medical History No medical history recorded. Gynecological HistoryNo gynecological history recorded. Obstetrics History GPAL:G 0 P 0 0 0 0 Past Encounters Encounter ID Performer Location Encounter Start Date Encounter Closed Date Diagnosis/Indication Diagnosis SNOMED-CT Code Diagnosis ICD10 Code Diagnosis Note [id number] Isaiah Carr PA-C [facility] [address] [place] [address] 08/29/2023 14:47:22 08/29/2023 14:56:15 Osteoarthritis of knee 169317858 M17.9 [id number] Lucina Peña, GENERAL ASSEMBLER INSTALLER [place] [address] [place] [address] 09/17/2023 12:46:44 09/30/2023 13:57:05 Lumbar radiculopathy 675817534 M54.16 lumb Cervical radiculopathy 29373650 M54.12 [id number] Lucina Peña CNP [facility] [address] [place] [address] 09/24/2023 13:31:27 10/03/2023 15:48:20 Low back pain 157760540 M54.50 Lumbar radiculopathy 128 798505 M54.16 lumb [id number] Isaiah Carr PA-C [facility] [address] [place] [address] 11/14/2023 08:35:54 12/09/2023 12:46:16 Bilateral osteoarthritis of knees 7316849122 31016 M17.0 [id number] Isaiah Carr PA-C [facility] [address] [place] [address] 01/10/2024 13:53:41 02/05/2024 08:13:01 Bilateral osteoarthritis of knees 0620774725 81588 M17.0 [id number] Isaiah Carr PA-C [facility] [address] [place] [address] 03/11/2024 13:53:08 04/06/2024 15:38:42 Bilateral osteoarthritis of knees 2764872898 51372 M17.0 [id number] Isaiah Carr PA-C [facility] [address] [place] [address] 05/22/2024 14:03:27 06/16/2024 07:55:39 Bilateral osteoarthritis of knees 7308915773 05496 M17.0 [id number] Lucina Peña, GENERAL ASSEMBLER INSTALLER [facility] [address] [place] [address] 06/29/2024 14:44:10 07/07/2024 16:03:04 Low back pain 191868964 M54.50 Lumbar radiculopathy 128 529064 M54.16 Neck pain 03817031 M54.2 Cervical radiculopathy 28378348 M54.12 [id number] Isaiah Carr PA-C [facility] [address] [place] [address] 07/29/2024 13:14:09 08/14/2024 10:05:12 Bilateral osteoarthritis of knees 0454170616 01312 M17.0 [id number] Isaiah Carr PA-C [facility] [address] [place] [address] 10/08/2024 14:47:25 10/26/2024 15:56:33 Bilateral osteoarthritis of knees 9320649520 57188 M17.0 Health Concerns Section Related Observation LastModified by Organization Detai ls LastModified Time None Recorded Concern Status LastModified by Organization Details LastModified Time None Recorded Advance Directives Directive None Recorded Payers Insurance Date Sequence Insurance Name Policy Number Policy Asencio Covered Member ID Asencio Member ID Guarantor Name 10/26/2024 1 [facility] - DOS ON OR AFTER 2022 - ONE CARE (MEDICARE REPLACEMENT/ADV ANTAGE - HMO) Tanisha Pelayo [id number] Tanisha Pelayo Notes Date Note Type Note Provider Name and Address Organization Details Recorded Time 06/29/2024 text/html I am seeing the patient under the general supervision of Dr. Zamarripa who was available but who did not see the patient. CC: appt for low back recheck, but patient also reports neck symptoms. Neck pain HPI: 64 year old woman presents for evaluation for neck pain. Last seen in our office in 2020 and reports these symptoms feel the same. Neck/arm pain returned 2 months ago. No injury or trauma. Both arms feel heavy and have shooting pains. Has had some weakness, dropping things, but no issues with dexterity or handwriting. Reports poor balance. Ambulates with cane, has known low back pain with radiculopathy and knee osteoarthritis awaiting TKR. Low back pain HPI:63-year-old woman presents for lumbar MRI review. [...] and is trying to lose weight before TKR.- At last encounter she was referred to [facility] and she did physical therapy with them, but no injections. She has not reached back out to them regarding her continued LBP and radiculopathy, unclear why. RADICULITIS:Upper: bilateral arm weaknessLower: Right lower extremity pain/numbness/tinglin g/weakness - posterior thigh, lateral calf PFMSH and ROS have been reviewed, updated, and it is located in the patient's chart. PRIOR TREATMENTS/MEDICATION S:prednisone, Tylenol, Lyrica, gabapentin, Tramadol, oxycodone, injection therapy years ago WORK STATUS: Disabled MSK EXAM: examination of the cervical spineTransitions: Patient able to arise from a seated position with difficulty due to knees/backGait: staggered, antalgic gait. cane. Heel-to-toe walk poor balanceInspection:--- Erythema - none--- Edema - none--- Deformity - none--- Posture - neutralTenderness:--- Spinous processes - none--- Paraspinal musculature - bilateral trapROM:--- Cervical spine: 75% normal--- Full ROM to shoulders, elbows, wrists, digitsExtremity strength:--- LUE 4/5--- RUE 4/5Neurologic:--- 2+ DTRs upper and lower--- Positive sensation to light moving touchSpecial tests:--- Negative Salvador bilaterally--- casting and locker room servicer and release test WNL--- negative ankle clonus--- Shoulder exam benign IMAGING:X-rays ordered, obtained, and independently reviewed at [facility] today. 2 view C-spine reveals mild straightening normal lordosis. C5-C6 disc space narrowing retrolisthesis.- L-spine MRI obtained 09/21/23 independently reviewed by myself [...] CKD. IMPRESSION: low back pain with RLE radiculopathy. neck pain, possible cervical radiculopathy PLAN: Findings discussed with the patient today. Case discussed with Dr. Mixon.- resend Referral to [facility] for eval and injection therapy for low back pain. She reports back injections years ago that were helpful before her back surgery.- Recommend physical therapy for cervical stabilization and BUE strengthening.- continue Tylenol and Gabapentin. She cannot take NSAIDs due to history of kidney disease.- If no improvement with conservative therapy of lumbar, will refer to Dr. Mixon to discuss surgical options.- will wait on cervical MRI for now. Balance issues not new, and likely r/t altered mobility from bilateral knee osteoarthritis, back pain, radiculopathy. Sedentary lifestyle with some deconditioning. complete physical therapy to see if increases strength- if no improvement at follow up c-spine, will order c-spine MRI. If neck/arm symptoms worsen before follow up, call and I will order MRI sooner. FOLLOW UP: 8 weeks Speech recognition hybrid derivatives trader software was used to create portions of this document. An attempt at proofreading has been made to minimize errors. Please call for corrections. time spent 45 minutes. Recheck low back, new evaluation and x rays cervical spine, review of plan. Lucina Peña, GENERAL ASSEMBLER INSTALLER [address], [place], [address], [facility] 06/29/2024 18:03:58 OBGyn Episode No OBEpisode recorded.
== END 2024-11-26 14:13 | disposition home or self-care (01) ==
LOC: HO.HKAS 13:49
PROVIDERS: PCP Internal Medicine; Visit Provider Internal Medicine Nephrology
DX: N18.31 Chronic kidney disease, stage 3a (principal); I10 Essential (primary) hypertension
CPT/HCPCS: 99214

== ENCOUNTER → 2024-11-26 13:49 | Outpatient (BNVA) | payer OTHER, SELFPAY | PROVIDERS: PCP Internal Medicine; Visit Provider Internal Medicine Nephrology | DX: N18.31 Chronic kidney disease, stage 3a (principal); I10 Essential (primary) hypertension | CPT/HCPCS: 99212 ==